=== PATIENT | female | born 1950 | race Caucasian/White ===

== ENCOUNTER 2020-11-22 11:42 | Inpatient (IN) | payer BC, MEDICARE ==
[2020-11-22] MEDS ORDERED: ACETAMINOPHEN TAB 500 MG TAB PO STA (12:37)
[2020-11-22] MEDS ORDERED: IPRATROPIUM-ALBUTEROL 3 ML NEB INHALATION STA (12:38)
--- NOTE | 2020-11-22 13:08 | XR ---
EXAMINATION TYPE: XR chest 1V portable DATE OF EXAM: 11/22/2020 Comparison: None Clinical History: 70-year-old female Suspected COVID-19 pneumonia Findings: Heart borderline enlarged. Activity mid and lower lung opacities. No sizable effusion seen. Large pat ient body habitus casts hazy densities. Impression: 1. Borderline cardiomegaly. 2. Patchy mid and lower lung airspace disease may reflect COVID pneumonia.
[2020-11-22 13:12] LABS: Basophils # (A) 0.1 k/uL (0-0.2); Basophils % (A) 1 %; Eosinophils # (A) 0.1 k/uL (0-0.7); Eosinophils % (A) 2 %; HCT 38.6 % (34.0-46.0); HGB 13.4 gm/dL (11.4-16.0); Lymphocytes # (A) 0.9 k/uL (1.0-4.8); Lymphocytes % (A) 14 %; MCH 32.6 pg (25.0-35.0); MCHC 34.8 g/dL (31.0-37.0); MCV 93.5 fL (80.0-100.0); Mean Platelet Volume 8.4; Monocytes # (A) 0.3 k/uL (0-1.0); Monocytes % (A) 4 %; Neutrophils # (A) 5.1 k/uL (1.3-7.7); Neutrophils % (A) 77 %; Platelet Count 161 k/uL (150-450); RBC 4.13 m/uL (3.80-5.40); RDW 12.3 % (11.5-15.5); WBC 6.6 k/uL (3.8-10.6)
--- NOTE | 2020-11-22 13:17 | ED ---
General Adult HPI - General Chief complaint: Shortness of Breath Stated complaint: Covid+, SOB Time Seen by Provider: 11/22/20 12:00 Source: patient, RN notes reviewed, old records reviewed Mode of arrival: ambulatory Limitations: no limitations - History of Present Illness Initial comments: This is a 70-year-old female presents emergency Department with a past medical history significant for hypertension. Patient states she has been having symptoms now of cough and shortness of breath and today is day 10. Patient states she also initially had a fever since thinks but she does not have currently. Patient denies any loss of taste or smell per patient states she does have diarrhea. Patient denies any chest pain or palpitations. Patient denies any abdominal pain. Patient denies any nausea vomiting. Patient denies headache patient denies numbness weakness. Patient denies any lightheadedness or dizziness. - Related Data Home Medications Medication Instructions Recorded Confirmed Albuterol Inhaler [Ventolin Hfa 2 puff INHALATION RT-QID PRN 11/22/20 11/22/20 Inhaler] Carvedilol [Coreg] 6.25 mg PO AC-BID 11/22/20 11/22/20 Diphenoxylate HCl/Atropine 2 tab PO QID PRN 11/22/20 11/22/20 [Lomotil 2.5-0.025 mg Tablet] Glimepiride [Amaryl] 2 mg PO BID 11/22/20 11/22/20 Losartan/Hydrochlorothiazide 1 tab PO DAILY 11/22/20 11/22/20 [Losartan-Hctz 100-25 mg Tab] Spironolactone 25 mg PO DAILY 11/22/20 11/22/20 Allergies Allergy/AdvReac Type Severity Reaction Status Date / Time Milk Containing Products AdvReac Nausea & Verified 11/22/20 15:11 [Dairy] Vomiting & Diarrhea Review of Systems ROS Statement: Those systems with pertinent positive or pertinent negative responses have been documented in the HPI. ROS Other: All systems not noted in ROS Statement are negative. Past Medical History Past Medical History: Hypertension Past Surgical History: Hysterectomy Past Psychological History: No Psychological Hx Reported Smoking Status: Never smoker Past Alcohol Use History: None Reported Past Drug Use History: None Reported General Exam - General Exam Comments Initial Comments: GENERAL: Patient is well-developed and well-nourished. Patient is nontoxic and well- hydrated and is in mild distress. Patient is to satting 90% on room air while sitting. Patient states she feels much worse with ambulation ENT: Neck is soft and supple. No significant lymphadenopathy is noted. Oropharynx is clear. Moist mucous membranes. Neck has full range of motion without eliciting any pain. EYES: The sclera were anicteric and conjunctiva were pink and moist. Extraocular movements were intact and pupils were equal round and reactive to light. Eyelids were unremarkable. PULMONARY: Patient is crackles bilateral bases. CARDIOVASCULAR: There is a regular rate and rhythm without any murmurs gallops or rubs. ABDOMEN: Soft and nontender with normal bowel sounds. SKIN: Skin is clear with no lesions or rashes and otherwise unremarkable. NEUROLOGIC: Patient is alert and oriented x3. Cranial nerves II through XII are grossly i ntact. Motor and sensory are also intact. Normal speech, volume and content. Symmetrical smile. MUSCULOSKELETAL: Normal extremities with adequate strength and full range of motion. LYMPHATICS: No significant lymphadenopathy is noted PSYCHIATRIC: Normal psychiatric evaluation. Limitations: no limitations Course Vital Signs 11/22/20 11/22/20 11/22/20 12:01 12:26 13:04 Temperature 98.7 F Pulse Rate 78 71 Respiratory 18 20 Rate Blood Pressure 135/63 O2 Sat by Pulse 90 L 96 94 L Oximetry 11/22/20 11/22/20 14:23 15:21 Temperature 98.3 F Pulse Rate 68 65 Respiratory 18 18 Rate Blood Pressure 157/40 141/67 O2 Sat by Pulse 96 95 Oximetry Medical Decision Making - Medical Decision Making EKG shows normal sinus rhythm at 71 bpm DE interval is 178 QRS with a 4 QT interval 442 QTC is 480. Patient's EKG shows no ST segment elevation or depression. Chest x-ray shows infiltrates bilaterally consistent with cold pneumonia. Patient had a computed tomography scan to rule out PE no PE was noted. Patient also showed infiltrates on the CAT scan consistent with cold pneumonia. I spoke with [facility] hospitalist and they agreed to admit the patient admitted the patient wrote admitting orders. I gave the patient Decadron. - Lab Data Result diagrams: 11/22/20 12:40 11/22/20 12:40 Lab Results 11/22/20 11/22/20 11/22/20 Range/Units 12:40 12:40 12:40 WBC 6.6 (3.8-10.6) k/uL RBC 4.13 (3.80-5.40) m/uL Hgb 13.4 (11.4-16.0) gm/dL Hct 38.6 (34.0-46.0) % MCV 93.5 (80.0-100.0) fL MCH 32.6 (25.0-35.0) pg MCHC 34.8 (31.0-37.0) g/dL RDW 12.3 (11.5-15.5) % Plt Count 161 (150-450) k/uL MPV 8.4 Neutrophils % 77 % Lymphocytes % 14 % Monocytes % 4 % Eosinophils % 2 % Basophils % 1 % Neutrophils # 5.1 (1.3-7.7) k/uL Lymphocytes # 0.9 L (1.0-4.8) k/uL Monocytes # 0.3 (0-1.0) k/uL Eosinophils # 0.1 (0-0.7) k/uL Basophils # 0.1 (0-0.2) k/uL PT 10.1 (9.0-12.0) sec INR 0.9 (<1.2) APTT 19.6 L (22.0-30.0) sec D-Dimer 1.12 H (<0.60) mg/L FEU Sodium 132 L (137-145) mmol/L Potassium 3.5 (3.5-5.1) mmol/L Chloride 96 L (98-107) mmol/L Carbon Dioxide 27 (22-30) mmol/L Anion Gap 9 mmol/L BUN 21 H (7-17) mg/dL Creatinine 0.58 (0.52-1.04) mg/dL Est GFR (CKD-EPI)AfAm >90 (>60 ml/min/1.73 sqM) Est GFR (CKD-EPI)NonAf >90 (>60 ml/min/1.73 sqM) Glucose 221 H (74-99) mg/dL Plasma Lactic Acid Alex (0.7-2.0) mmol/L Calcium 8.4 (8.4-10.2) mg/dL Magnesium 1.9 (1.6-2.3) mg/dL Total Bilirubin 1.2 (0.2-1.3) mg/dL AST 38 H (14-36) U/L ALT 26 (4-34) U/L Alkaline Phosphatase 73 (38-126) U/L Lactate Dehydrogenase 749 H (313-618) U/L C-Reactive Protein 152.1 H (<10.0) mg/L Total Protein 6.8 (6.3-8.2) g/dL Albumin 3.7 (3.5-5.0) g/dL 11/22/20 Range/Units 12:40 WBC (3.8-10.6) k/uL RBC (3.80-5.40) m/uL Hgb (11.4-16.0) gm/dL Hct (34.0-46.0) % MCV (80.0-100.0) fL MCH (25.0-35.0) pg MCHC (31.0-37.0) g/dL RDW (11.5-15.5) % Plt Count (150-450) k/uL MPV Neutrophils % % Lymphocytes % % Monocytes % % Eosinophils % % Basophils % % Neutrophils # (1.3-7.7) k/uL Lymphocytes # (1.0-4.8) k/uL Monocytes # (0-1.0) k/uL Eosinophils # (0-0.7) k/uL Basophils # (0-0.2) k/uL PT (9.0-12.0) sec INR (<1.2) APTT (22.0-30.0) sec D-Dimer (<0.60) mg/L FEU Sodium (137-145) mmol/L Potassium (3.5-5.1) mmol/L Chloride (98-107) mmol/L Carbon Dioxide (22-30) mmol/L Anion Gap mmol/L BUN (7-17) mg/dL Creatinine (0.52-1.04) mg/dL Est GFR (CKD-EPI)AfAm (>60 ml/min/1.73 sqM) Est GFR (CKD-EPI)NonAf (>60 ml/min/1.73 sqM) Glucose (74-99) mg/dL Plasma Lactic Acid Alex 1.6 (0.7-2.0) mmol/L Calcium (8.4-10.2) mg/dL Magnesium (1.6-2.3) mg/dL Total Bilirubin (0.2-1.3) mg/dL AST (14-36) U/L ALT (4-34) U/L Alkaline Phosphatase (38-126) U/L Lactate Dehydrogenase (313-618) U/L C-Reactive Protein (<10.0) mg/L Total Protein (6.3-8.2) g/dL Albumin (3.5-5.0) g/dL Critical Care Time Critical Care Time: Yes Total Critical Care Time: 35 Disposition Clinical Impression: Pneumonia due to COVID-19 virus, Breast lesion Disposition: ADMITTED IP TO THIS [facility] Time of Disposition: 15:06
[2020-11-22 13:26] LABS: ALT 26 U/L (4-34); AST 38 U/L (14-36); African American GFR (CKD) >90 (>60 ml/min/1.73 sqM); Albumin 3.7 g/dL (3.5-5.0); Alkaline Phosphatase 73 U/L (38-126); Anion Gap 9 mmol/L; Blood Urea Nitrogen 21 mg/dL (7-17); Calcium 8.4 mg/dL (8.4-10.2); Carbon Dioxide 27 mmol/L (22-30); Chloride 96 mmol/L (98-107); Glucose 221 mg/dL (74-99); LDH 749 U/L (313-618); Magnesium 1.9 mg/dL (1.6-2.3); Non-African American GFR(CKD) >90 (>60 ml/min/1.73 sqM); Potassium 3.5 mmol/L (3.5-5.1); Sodium 132 mmol/L (137-145); Total Bilirubin 1.2 mg/dL (0.2-1.3); Total Protein 6.8 g/dL (6.3-8.2)
[2020-11-22] MEDS ORDERED: ALBUTEROL HFA INHALER INHALATION ONE (13:30)
[2020-11-22 13:38] LABS: INR 0.9 (<1.2); Prothrombin Time 10.1 sec (9.0-12.0)
[2020-11-22 13:44] LABS: D-Dimer 1.12 mg/L FEU (<0.60); Partial Thromboplastin Time 19.6 sec (22.0-30.0)
[2020-11-22 13:46] LABS: C Reactive Protein 152.1 mg/L (<10.0)
--- NOTE | 2020-11-22 14:30 | CT ---
EXAMINATION TYPE: CT chest angio for PE DATE OF EXAM: 11/22/2020 COMPARISON: Chest x-ray earlier today HISTORY: Shortness of breath CT DLP: 518.6 mGycm Automated exposure control for dose reduction was used. CONTRAST: CT Chest for pulmonary embolism performed with with IV Contrast, patient injected with 100, wasted 16 mL of Isovue 370. FINDINGS: LUNGS: Multifocal areas of groundglass opacity bilaterally are present. Exam suboptimal as there is s ignificant respiratory motion artifact degradation, this limits evaluation for subcentimeter nodules. No pleural effusion or pneumothorax. MEDIASTINUM: There is suboptimal study with near equal contrast in the aorta and pulmonary arteries, heterogeneity in the periphery, no central pulmonary embolism. Dilated main pulmonary artery of 3.6 c m axial image 46, CT findings consistent with underlying pulmonary hypertension. Cannot exclude small er segmental and subsegmental PE on this exam. No thoracic aortic aneurysm or dissection. There are p rominent bilateral hilar along with prevascular, paratracheal, and subcarinal lymph nodes. Cardiomega ly. No pericardial effusion seen. Other: Moderate multilevel spurring in the spine. Suspicious 1.3 cm x 1.3 x 1.5 area in the posterio r left breast on axial image 58 and sagittal image 158 above the nipple. IMPRESSION: 1. 1. Suboptimal study without central pulmonary embolism. Cannot entirely exclude segmental and subsegm ental PE on this exam. 2. Cardiomegaly with bilateral multifocal groundglass opacities consistent with covid-19 infection. 3. Suspect suspicious left breast 1.5 cm lesion posterior depth 6:00 position, advise nonemergent dyan gnostic mammogram and ultrasound follow-up. Patient's last mammogram at this institution was 2015.
[2020-11-22] MEDS ORDERED: dexAMETHasone 2 MG TAB PO STA (15:12)
[2020-11-22] MEDS: ALBUTEROL HFA INHALER INHALATION PRN (19:29)
[2020-11-22 19:56] LABS: Ferritin 613.5 ng/mL (10.0-291.0)
[2020-11-22 20:05] LABS: Glucose,Whole Blood 366 mg/dL (75-99)
[2020-11-22] MEDS: GLIMEPIRIDE 2 MG TAB PO SCH (20:32)
[2020-11-22] MEDS: INSULIN ASPART (NovoLOG) 100 UNIT/ML VIAL SQ SCH (20:32)
[2020-11-22] MEDS ORDERED: ONDANSETRON 4 MG/2 ML VIAL IVP PRN (21:05)
[2020-11-22] MEDS ORDERED: ASCORBIC ACID 500 MG TAB PO SCH (22:15)
[2020-11-23] MEDS: ENOXAPARIN 40 MG/0.4 ML SYRINGE SQ SCH ×2 (00:02→07:23)
--- NOTE | 2020-11-23 00:07 | P.HPIM ---
History of Present Illness This is a pleasant 70 years old female with past medical history of hypertension and diabetes mellitus type 2. Presents because of dyspnea and coughing. Patient states that she wanted to [facility] for dyspnea 10 days ago , they did perez virus test for her , and today she received a phone call stating that result is positive for covid 19 infection and they asked her to come to the hospital again for oxygen treatment, but she decided to come to [facility]. Also patient has significant cough with phlegm. She may have some little chest pain from coughing. Also she has diarrhea about 4-5 times per day but no abdominal pain or nausea vomiting Patient is afebrile and she saturates 94% on 3 L oxygen via nasal cannula and 90% on room air. CBC is unremarkable. INR 0.9. D-dimer is slightly elevated at 1.1. Sodium 132, potassium 3.5, creatinine normal 0.5. Increase inflammatory markers with ferritin 6.3, lactate dehydrogenase 749 and C-reactive protein 152. Liver enzymes are not elevated as well as bilirubin CTA of chest is negative for pulmonary embolism, bilateral groundglass opacities suspicious for Covid 19 infection. Also she has 1.3 x 1.3 x 1.5 cm left breast lesion She is on Lovenox, dexamethasone, zinc and vitamin C. Pulmonary team consult from ED Review of Systems CONSTITUTIONAL: No fever, no malaise, no fatigue. HEENT: No recent visual problems or hearing problems. Denied any sore throat. CARDIOVASCULAR: No orthopnea, PND, no palpitations, no syncope. PULMONARY: No upper respiratory symptoms, no hemoptysis. GASTROINTESTINAL: No diarrhea, no nausea, no vomiting, no abdominal pain. Normoactive bowel sounds. NEUROLOGICAL: No headaches, no weakness, no numbness. HEMATOLOGICAL: Denies any bleeding or petechiae. GENITOURINARY: Denies any burning micturition, frequency, or urgency. MUSCULOSKELETAL/RHEUMATOLOGICAL: Denies any joint pain, swelling, or any muscle pain. ENDOCRINE: Denies any polyuria or polydipsia. Past Medical History Past Medical History: Hypertension History of Any Multi-Drug Resistant Organisms: None Reported Past Surgical History: Hysterectomy Past Anesthesia/Blood Transfusion Reactions: No Reported Reaction Past Psychological History: No Psychological Hx Reported Smoking Status: Never smoker Past Alcohol Use History: None Reported Past Drug Use History: None Reported Medications and Allergies Home Medications Medication Instructions Recorded Confirmed Type Albuterol Inhaler [Ventolin Hfa 2 puff INHALATION RT-QID PRN 11/22/20 11/22/20 History Inhaler] Carvedilol [Coreg] 6.25 mg PO AC-BID 11/22/20 11/22/20 History Diphenoxylate HCl/Atropine 2 tab PO QID PRN 11/22/20 11/22/20 History [Lomotil 2.5-0.025 mg Tablet] Glimepiride [Amaryl] 2 mg PO BID 11/22/20 11/22/20 History Losartan/Hydrochlorothiazide 1 tab PO DAILY 11/22/20 11/22/20 History [Losartan-Hctz 100-25 mg Tab] Spironolactone 25 mg PO DAILY 11/22/20 11/22/20 History Allergies Allergy/AdvReac Type Severity Reaction Status Date / Time Milk Containing Products AdvReac Nausea & Verified 11/22/20 15:11 [Dairy] Vomiting & Diarrhea Physical Exam Vitals: Vital Signs Temp Pulse Resp BP Pulse Ox 11/22/20 18:23 98.8 F 66 18 150/70 94 L 11/22/20 15:21 65 18 141/67 95 11/22/20 14:23 98.3 F 68 18 157/40 96 11/22/20 13:04 94 L 11/22/20 12:26 71 20 96 11/22/20 12:01 98.7 F 78 18 135/63 90 L Intake and Output 11/22/20 11/22/20 11/22/20 06:59 14:59 22:59 Other: Weight 113.852 kg 113.852 kg GENERAL: The patient is alert and oriented x3, not in any acute distress. Well developed, well nourished. HEENT: Pupils are round and equally reacting to light. EOMI. No scleral icterus. No conjunctival pallor. Normocephalic, atraumatic. No pharyngeal erythema. No thyromegaly. CARDIOVASCULAR: S1 and S2 present. No murmurs, rubs, or gallops. -PULMONARY: Chest is clear to auscultation, no bilateral scattered wheezing ABDOMEN: Soft, nontender, nondistended, normoactive bowel sounds. No palpable organomegaly. MUSCULOSKELETAL: No joint swelling or deformity. EXTREMITIES: No cyanosis, clubbing, or pedal edema. NEUROLOGICAL: Gross neurological examination did not reveal any focal deficits. SKIN: No rashes. No petechiae Results CBC & Chem 7: 11/22/20 12:40 11/22/20 12:40 Labs: Abnormal Lab Results - Last 24 Hours (Table) 11/22/20 11/22/20 11/22/20 Range/Units 12:40 12:40 12:40 Lymphocytes # 0.9 L (1.0-4.8) k/uL APTT 19.6 L (22.0-30.0) sec D-Dimer 1.12 H (<0.60) mg/L FEU Sodium 132 L (137-145) mmol/L Chloride 96 L (98-107) mmol/L BUN 21 H (7-17) mg/dL Glucose 221 H (74-99) mg/dL POC Glucose (mg/dL) (75-99) mg/dL Ferritin 613.5 H (10.0-291.0) ng/mL AST 38 H (14-36) U/L Lactate Dehydrogenase 749 H (313-618) U/L C-Reactive Protein 152.1 H (<10.0) mg/L 11/22/20 Range/Units 20:00 Lymphocytes # (1.0-4.8) k/uL APTT (22.0-30.0) sec D-Dimer (<0.60) mg/L FEU Sodium (137-145) mmol/L Chloride (98-107) mmol/L BUN (7-17) mg/dL Glucose (74-99) mg/dL POC Glucose (mg/dL) 366 H (75-99) mg/dL Ferritin (10.0-291.0) ng/mL AST (14-36) U/L Lactate Dehydrogenase (313-618) U/L C-Reactive Protein (<10.0) mg/L Thrombosis Risk Factor Assmnt - Choose All That Apply Any of the Below Risk Factors Present?: No Other Risk Factors: Yes Other congenital or acquired thrombophilia - If yes, enter type in comment: No Assessment and Plan Assessment: Acute Covid 19 pneumonitis Acute hypoxic respiratory failure secondary to above Acute Covid 19 gastroenteritis Increase inflammatory markers Left breast lesion 1.5 cm Hypertension Type 2 diabetes mellitus Plan: This is a pleasant 70 years old female who presents with Covid pneumonia. Continue with dexamethasone, vitamin C and zinc. Continue with oxygen as needed. Continue Lovenox. Pulmonary team consult. Follow-up for left breast lesion as an outpatient Continue same treatment. Continue with symptomatic treatment. Resume home medication. Monitor lytes and vitals. DVT and GI prophylaxis. Further recommendations depends on the clinical course of the patient DVT prophylaxis: Subcutaneous Lovenox GI Prophylaxis: Pepcid Prognosis is guarded
[2020-11-23] MEDS ORDERED: guaiFENesin-DM 100-10MG/5ML 10 ML CUP PO PRN (01:00)
[2020-11-23 07:03] LABS: Glucose,Whole Blood 240 mg/dL (75-99)
[2020-11-23] MEDS: ZINC SULFATE 220 MG CAP PO SCH (07:23)
[2020-11-23] MEDS: GLIMEPIRIDE 2 MG TAB PO SCH ×2 (07:23→20:31)
[2020-11-23] MEDS: dexAMETHasone 2 MG TAB PO SCH (07:24)
[2020-11-23] MEDS: ASCORBIC ACID 500 MG TAB PO SCH (07:24)
[2020-11-23] MEDS: amLODIPine 5 MG TAB PO SCH (07:24)
[2020-11-23] MEDS: carvediloL 6.25 MG TAB PO SCH ×2 (07:24→17:43)
[2020-11-23] MEDS: SPIRONOLACTONE 25 MG TAB PO SCH (07:24)
[2020-11-23] MEDS: LOSARTAN-HCTZ 50-12.5 MG 1 EACH TAB PO SCH (07:25)
[2020-11-23] MEDS: INSULIN ASPART (NovoLOG) 100 UNIT/ML VIAL SQ SCH ×4 (07:25→20:31)
[2020-11-23 07:29] LABS: Hemoglobin A1C 8.7 % (4.0-6.0)
--- NOTE | 2020-11-23 08:21 | USB ---
Reason for exam: clinical finding. History: Patient is postmenopausal and has history of endometrial cancer at age 55. Family history of breast cancer in mother at age 50, premenopausal breast cancer in sister at age 40, premenopausal breast cancer in sister at age 44, and breast cancer in sister. Took hormonal contraceptives for 3 years. US Breast LT Left complete breast ultrasound includes all four quadrants, the retroareolar region and axilla. Finding demonstrates a 1.5 x 1.3 x 1.4cm hypoechoic lesion at 1 o'clock and a 0.6 x 0.3 x 0.5cm lesion too small to characterize at 3 o'clock. Inpatient exam. Corresponds to CT 11/22/20, mammogram 01/07/16. ASSESSMENT: Suspicious, BI-RAD 4 RECOMMENDATION: Follow-up diagnostic mammogram and ultrasound core biopsy of the left breast. Patient scanned inpatient.
[2020-11-23] MEDS: ALBUTEROL HFA INHALER INHALATION PRN ×3 (08:58→21:01)
[2020-11-23 11:26] LABS: Glucose,Whole Blood 244 mg/dL (75-99)
--- NOTE | 2020-11-23 12:22 | P.PN ---
Subjective This is a pleasant 70 years old female with past medical history of hypertension and diabetes mellitus type 2. Presents because of dyspnea and coughing. Patient states that she wanted to [facility] for dyspnea 10 days ago , they did perez virus test for her , and today she received a phone call stating that result is positive for covid 19 infection and they asked her to come to the hospital again for oxygen treatment, but she decided to come to [facility]. Also patient has significant cough with phlegm. She may have some little chest pain from coughing. Also she has diarrhea about 4-5 times per day but no abdominal pain or nausea vomiting Patient is afebrile and she saturates 94% on 3 L oxygen via nasal cannula and 90% on room air. CBC is unremarkable. INR 0.9. D-dimer is slightly elevated at 1.1. Sodium 132 , potassium 3.5, creatinine normal 0.5. Increase inflammatory markers with ferritin 6.3, lactate dehydrogenase 749 and C-reactive protein 152. Liver enzymes are not elevated as well as bilirubin CTA of chest is negative for pulmonary embolism, bilateral groundglass opacities suspicious for Covid 19 infection. Also she has 1.3 x 1.3 x 1.5 cm left breast lesion She is on Lovenox, dexamethasone, zinc and vitamin C. Pulmonary team consult from ED 11/23/2020 Patient was admitted for Covid pneumonia and mild hypoxia. She still needs 2-3 L oxygen to keep her saturation at 92-94%. She is afebrile. She feels her breathing a little bit better even when she goes to the restroom she still have diarrhea about 3-4 times yesterday and was this morning. But no abdominal pain or vomiting. She is eating most of her meal Her sugar is slightly elevated around 240s. She is currently on dexamethasone, zinc and vitamin C. Pulmonary team were consulted Also patient with suspicious left breast lesion about 1.5 cm, confirmed with left breast ultrasound today. Dr. Ruffin from [employer] [facility] was consulted who referred the consult to Gen. surgery for possible biopsy . Patient is aware of this problem and management plan Review of Systems CONSTITUTIONAL: No fever, no malaise, no fatigue. HEENT: No recent visual problems or hearing problems. Denied any sore throat. CARDIOVASCULAR: No orthopnea, PND, no palpitations, no syncope. PULMONARY: No upper respiratory symptoms, no hemoptysis. GASTROINTESTINAL: No diarrhea, no nausea, no vomiting, no abdominal pain. Normoactive bowel sounds. NEUROLOGICAL: No headaches, no weakness, no numbness. Active Medications Generic Name Dose Route Start Last Admin Trade Name Freq PRN Reason Stop Dose Admin Albuterol Sulfate 2 puff 11/22/20 19:20 11/23/20 08:58 Albuterol Hfa Inhaler INHALATION 2 puff RT-QID PRN Administration Shortness Of Breath Amlodipine Besylate 5 mg 11/23/20 09:00 11/23/20 07:24 Amlodipine 5 Mg Tab PO 5 mg DAILY CRISTINA Administration Ascorbic Acid 1,000 mg 11/23/20 09:00 11/23/20 07:24 Ascorbic Acid 500 Mg Tab PO 1,000 mg DAILY CRISTINA Administration Carvedilol 6.25 mg 11/23/20 07:30 11/23/20 07:24 Carvedilol 6.25 Mg Tab PO 6.25 mg AC-BID CRISTINA Administration Dexamethasone 6 mg 11/23/20 09:00 11/23/20 07:24 Dexamethasone 2 Mg Tab PO 6 mg DAILY CRISTINA Administration Enoxaparin Sodium 40 mg 11/22/20 22:30 11/23/20 07:23 Enoxaparin 40 Mg/0.4 Ml Syringe SQ 40 mg DAILY CRISTINA Administration Glimepiride 2 mg 11/22/20 21:00 11/23/20 07:23 Glimepiride 2 Mg Tab PO 2 mg BID CRISTINA Administration Guaifenesin/Dextromethorphan 10 ml 11/23/20 01:00 Guaifenesin-Dm 100-10mg/5ml 10 Ml Cup PO Q6H PRN Cough HCTZ/Losartan Potassium 2 each 11/23/20 09:00 11/23/20 07:25 Losartan-Hctz 50-12.5 Mg 1 Each Tab PO 2 each DAILY CRISTINA Administration Insulin Aspart 0 unit 11/22/20 21:00 11/23/20 11:53 Insulin Aspart (Novolog) 100 Unit/Ml Vial SQ 5 unit ACHS CRITSINA Administration Protocol Ondansetron HCl 4 mg 11/22/20 21:05 11/22/20 21:14 Ondansetron 4 Mg/2 Ml Vial IVP 4 mg Q6HR PRN Administration Nausea And Vomiting Spironolactone 25 mg 11/23/20 09:00 11/23/20 07:24 Spironolactone 25 Mg Tab PO 25 mg DAILY CRISTINA Administration Zinc Sulfate 220 mg 11/23/20 09:00 11/23/20 07:23 Zinc Sulfate 220 Mg Cap PO 220 mg DAILY CRISTINA Administration Objective - Vital Signs Vital signs: Vital Signs Temp 98.4 F 11/23/20 10:00 Pulse 58 L 11/23/20 10:00 Resp 18 11/23/20 10:00 BP 127/66 11/23/20 10:00 Pulse Ox 92 L 11/23/20 10:00 Intake & Output 11/22/20 11/23/20 11/23/20 18:59 06:59 18:59 Weight 113.852 kg 113.852 kg Other: # Bowel Movements 2 - Labs CBC & Chem 7: 11/22/20 12:40 11/22/20 12:40 Labs: Abnormal Lab Results - Last 24 Hours (Table) 11/22/20 11/22/20 11/22/20 Range/Units 12:40 12:40 12:40 Lymphocytes # 0.9 L (1.0-4.8) k/uL APTT 19.6 L (22.0-30.0) sec D-Dimer 1.12 H (<0.60) mg/L FEU Sodium 132 L (137-145) mmol/L Chloride 96 L (98-107) mmol/L BUN 21 H (7-17) mg/dL Glucose 221 H (74-99) mg/dL POC Glucose (mg/dL) (75-99) mg/dL Hemoglobin A1c (4.0-6.0) % Ferritin 613.5 H (10.0-291.0) ng/mL AST 38 H (14-36) U/L Lactate Dehydrogenase 749 H (313-618) U/L C-Reactive Protein 152.1 H (<10.0) mg/L Procalcitonin (0.02-0.09) ng/mL 11/22/20 11/22/20 11/22/20 Range/Units 12:40 19:11 20:00 Lymphocytes # (1.0-4.8) k/uL APTT (22.0-30.0) sec D-Dimer (<0.60) mg/L FEU Sodium (137-145) mmol/L Chloride (98-107) mmol/L BUN (7-17) mg/dL Glucose (74-99) mg/dL POC Glucose (mg/dL) 366 H (75-99) mg/dL Hemoglobin A1c 8.7 H (4.0-6.0) % Ferritin (10.0-291.0) ng/mL AST (14-36) U/L Lactate Dehydrogenase (313-618) U/L C-Reactive Protein (<10.0) mg/L Procalcitonin 0.14 H (0.02-0.09) ng/mL 11/23/20 11/23/20 Range/Units 07:02 11:25 Lymphocytes # (1.0-4.8) k/uL APTT (22.0-30.0) sec D-Dimer (<0.60) mg/L FEU Sodium (137-145) mmol/L Chloride (98-107) mmol/L BUN (7-17) mg/dL Glucose (74-99) mg/dL POC Glucose (mg/dL) 240 H 244 H (75-99) mg/dL Hemoglobin A1c (4.0-6.0) % Ferritin (10.0-291.0) ng/mL AST (14-36) U/L Lactate Dehydrogenase (313-618) U/L C-Reactive Protein (<10.0) mg/L Procalcitonin (0.02-0.09) ng/mL Assessment and Plan Assessment: Acute Covid 19 pneumonitis Acute hypoxic respiratory failure secondary to above Acute Covid 19 gastroenteritis Increase inflammatory markers Left breast lesion 1.5 cm Hypertension Type 2 diabetes mellitus Plan: This is a pleasant 70 years old female who presents with Covid pneumonia. Continue with dexamethasone, vitamin C and zinc. Continue with oxygen as needed. Continue Lovenox. Pulmonary team consult. Follow-up for left breast lesion , lesion is suspicious per CAT scan and ultrasound. Gen. surgery team were consulted Continue with same treatment. Continue with symptomatic treatment. Resume home medication. Monitor lytes and vitals. DVT and GI prophylaxis. Further recommendations depends on the clinical course of the patient DVT prophylaxis: Subcutaneous Lovenox GI Prophylaxis: Pepcid Prognosis is guarded
--- NOTE | 2020-11-23 14:05 | P.CNPUL ---
History of Present Illness Consult date: 11/23/20 Requesting physician: Tang E Sheet Reason for consult: dyspnea, cough, hypoxemia, pneumonia, abnormal CXR/CT Chief complaint: Shortness of breath. History of present illness: This is a 70-year-old female, that I'm asked to see because of COVID 19 pneumonia. The patient started having symptoms 10 or 11 days ago. The patient apparently went to some clinic in [place], but was discharged home. It is not clear to me that she was tested at that time. Her symptoms include muscle aches, joint is, cough, shortness of breath, pain in the chest, and diarrhea. Unfortunately, because her symptoms have been present for just a long time, she is really not a candidate for REM, TOCI or CP. She was seen in the emergency room and started on Decadron. The patient should also be on vitamin C, vitamin D3, and zinc. Finally, she should have an albuterol inhaler. Her chest x-ray and CAT scan are consistent with COVID 19 pneumonia. She tells me today, that she feeling a bit better than she was yesterday. Her primary care provider is Dr. Aneesh Davis. Her home medications include albuterol inhaler, Coreg, Lomotil, glimepiride, losartan/hydrochlorothiazide, and Aldactone. She is a lifelong nonsmoker. She doesn't drink or use any illicit drugs. Currently, she is on a couple liters of oxygen. White count is 6.6, hemoglobin 13.4, hematocrit 38.6, and platelet count 161,000. PT INR were normal. D-dimer was 1.12. Sodium 132, potassium 3.5, chlorides 96, CO2 27, anion gap 9, BUN 21, and creatinine 0.58. C-reactive protein was 152.1, LDH 749, ferritin 614, and pro- calcitonin level was 0.14 Review of Systems REVIEW OF SYSTEMS: CONSTITUTIONAL: Fatigue and weakness. NEUROLOGIC: [ Negative.] HEENT: [ Negative.] CARDIAC: [Negative.] PULMONARY: Shortness of breath and cough. GI: Diarrhea. : [Negative.] RHEUMATOLOGIC: [ Negative.] IMMUNOLOGIC: [ Negative.] ENDOCRINE: [Negative. ] DERMATOLOGIC: [Negative.] Past Medical History Past Medical History: Hypertension History of Any Multi-Drug Resistant Organisms: None Reported Past Surgical History: Hysterectomy Past Anesthesia/Blood Transfusion Reactions: No Reported Reaction Past Psychological History: No Psychological Hx Reported Smoking Status: Never smoker Past Alcohol Use History: None Reported Past Drug Use History: None Reported - Past Family History Mother History Unknown: Yes Medications and Allergies Home Medications Medication Instructions Recorded Confirmed Type Albuterol Inhaler [Ventolin Hfa 2 puff INHALATION RT-QID PRN 11/22/20 11/22/20 History Inhaler] Carvedilol [Coreg] 6.25 mg PO AC-BID 11/22/20 11/22/20 History Diphenoxylate HCl/Atropine 2 tab PO QID PRN 11/22/20 11/22/20 History [Lomotil 2.5-0.025 mg Tablet] Glimepiride [Amaryl] 2 mg PO BID 11/22/20 11/22/20 History Losartan/Hydrochlorothiazide 1 tab PO DAILY 11/22/20 11/22/20 History [Losartan-Hctz 100-25 mg Tab] Spironolactone 25 mg PO DAILY 11/22/20 11/22/20 History Allergies Allergy/AdvReac Type Severity Reaction Status Date / Time Milk Containing Products AdvReac Nausea & Verified 11/22/20 15:11 [Dairy] Vomiting & Diarrhea Physical Exam Osteopathic Statement: *. No significant issues noted on an osteopathic structural exam other than those noted in the History and Physical/Consult. Vitals: Vital Signs Temp Pulse Pulse Resp BP BP Pulse Ox 11/23/20 10:00 98.4 F 58 L 18 127/66 92 L 11/23/20 05:32 97.5 F L 58 L 163/63 94 L 11/23/20 02:32 97.4 F L 56 L 178/72 92 L 11/22/20 21:47 97.8 F 66 173/61 92 L 11/22/20 18:23 98.8 F 66 18 150/70 94 L 11/22/20 15:21 65 18 141/67 95 11/22/20 14:23 98.3 F 68 18 157/40 96 Intake and Output 11/22/20 11/23/20 11/23/20 22:59 06:59 14:59 Other: # Bowel Movements 2 Weight 113.852 kg No acute distress, oriented 3. Currently, the patient's on 2 L nasal cannula. HEENT examination is grossly unremarkable. Mucous membranes are moist. No oral lesions. Neck supple. Full range of motion. No adenopathy thyromegaly or neck vein distention. Cardiovascular examination reveals regular rhythm rate. S1-S2 normal. No S3 or S4. No discernible murmur noted.HR is 58 bpm. Lungs reveal coarse bilateral rhonchi. There are a few scattered crackles. Breath sounds equal bilaterally. She coughs when she takes a deep breath. Abdomen soft bowel sounds are heard. No masses or tenderness. Extremities are intact. No cyanosis clubbing or edema. Skin is without rash or lesion. Neurologic examination is brief but nonfocal. Results - Laboratory Findings CBC and BMP: 11/22/20 12:40 11/22/20 12:40 PT/INR, D-dimer PT 10.1 sec (9.0-12.0) 11/22/20 12:40 INR 0.9 (<1.2) 11/22/20 12:40 D-Dimer 1.12 mg/L FEU (<0.60) H 11/22/20 12:40 Abnormal lab findings: Abnormal Labs 11/22/20 11/22/20 11/22/20 12:40 12:40 12:40 Lymphocytes # 0.9 L APTT 19.6 L D-Dimer 1.12 H Sodium 132 L Chloride 96 L BUN 21 H Glucose 221 H POC Glucose (mg/dL) Hemoglobin A1c Ferritin 613.5 H AST 38 H Lactate Dehydrogenase 749 H C-Reactive Protein 152.1 H Procalcitonin 11/22/20 11/22/20 11/22/20 12:40 19:11 20:00 Lymphocytes # APTT D-Dimer Sodium Chloride BUN Glucose POC Glucose (mg/dL) 366 H Hemoglobin A1c 8.7 H Ferritin AST Lactate Dehydrogenase C-Reactive Protein Procalcitonin 0.14 H 11/23/20 11/23/20 07:02 11:25 Lymphocytes # APTT D-Dimer Sodium Chloride BUN Glucose POC Glucose (mg/dL) 240 H 244 H Hemoglobin A1c Ferritin AST Lactate Dehydrogenase C-Reactive Protein Procalcitonin - Diagnostic Findings Chest x-ray: image reviewed CT scan - chest: image reviewed Assessment and Plan Assessment: Acute hypoxemic respiratory failure secondary to COVID 19 pneumonia. History of hypertension. Plan: Plan dated 11/23/2020. Unfortunately, the patient's symptoms have been present for about 11 days now. She's not a candidate for REM, TOCI, or convalescent plasma. The patient is given vitamin C, vitamin D3, and zinc. The patient is also given an albuterol inhaler. Can be used 2 puffs as needed. Finally, the patient gets Decadron, 6 mg a day for a total of 10 days. Also, she should get Lovenox at usual doses. We will continue to follow her, and make recommendations were appropriate. Prognosis is guarded. No additional recommendations are made at this time. Time with Patient: Greater than 30
--- NOTE | 2020-11-23 14:52 | P.GSCN ---
History of Present Illness Consult date: 11/23/20 History of present illness: CHIEF COMPLAINT: Shortness of breath HISTORY OF PRESENT ILLNESS: This is a 70-year-old female with a known history of hypertension. Patient presented to the emergency room with cough and shortness of breath for the last 10 days. And she initially had a fever when symptoms began. She had a CTA of the chest that had showed suboptimal study without central pulmonary embolism. cardiomegaly with bilateral multifocal groundglass opacities consistent with Covid 19 infection and suspect a suspicious left breast 1.5 cm lesion posterior at 6 o'clock position. Advise nonemergent diagnostic mammogram and ultrasound follow-up. Patient's last mammogram at this institution was in 2015. Patient then had a left breast ultrasound demonstrates a 1.5 x 1.3 x 1.4 cm hypoechoic lesion at 1 o'clock position 0.6 x 0.3 x 0.5 cm lesion too small to characterize at 3 o'clock position. Surgical service was consulted in regards to the breast lesion. Patient has been admitted to the hospital for a Covid 19 infection and respiratory failure. She's followed by pulmonary service. Patient seen and examined with Dr. Lee PAST MEDICAL HISTORY: See list. PAST SURGICAL HISTORY: See list. MEDICATIONS: See list. ALLERGIES: See list. SOCIAL HISTORY: No illicit drug use. REVIEW OF SYSTEMS: CONSTITUTIONAL: Denies fever or chills. HEENT: Denies blurred vision, vision changes, or eye pain. Denies hemoptysis CARDIOVASCULAR: Denies chest pain or pressure. RESPIRATORY: No shortness of breath. GASTROINTESTINAL: See HPI for pertinent findings HEMATOLOGIC: Denies bleeding disorders. GENITOURINARY: Denies any blood in urine or increased urinary frequency. SKIN: Denies pruitis. Denies rash. PHYSICAL EXAM: VITAL SIGNS: Reviewed GENERAL: Well-developed in no acute distress. HEENT: No sclera icterus. Extraocular movements grossly intact. Moist buccal mucosa. Head is atraumatic, normocephalic. No nasal drainage. ABDOMEN: Soft. Nondistended. nontender NEUROLOGIC: Alert and oriented. Cranial nerves II through XII grossly intact. LABORATORY DATA: WBC 6.6 HGB 13.4 A1c 8.7 IMAGING: Left Breast ultrasound demonstrates a 1.5 x 1.3 x 1.4 cm hypoechoic lesion at 1 o'clock position 0.6 x 0.3 x 0.5 cm lesion too small to characterize at 3 o'clock position. CTA of the chest that had showed suboptimal study without central pulmonary embolism. cardiomegaly with bilateral multifocal groundglass opacities consistent with Covid 19 infection and suspect a suspicious left breast 1.5 cm lesion posterior at 6 o'clock position. Advise nonemergent diagnostic mammogram and ultrasound follow-up ASSESSMENT: 1. Two left breast lesions at 1 o'clock and 3 o'clock positions PLAN: -Dr. Claros will plan for outpatient biopsy of left breast lesions when patient is more medically stable. Thank you for this consultation. Physician Color Specialist note has been reviewed by physician. Signing provider agrees with the documented findings, assessment, and plan of care. Past Medical History Past Medical History: Hypertension History of Any Multi-Drug Resistant Organisms: None Reported Past Surgical History: Hysterectomy Past Anesthesia/Blood Transfusion Reactions: No Reported Reaction Past Psychological History: No Psychological Hx Reported Smoking Status: Never smoker Past Alcohol Use History: None Reported Past Drug Use History: None Reported - Past Family History Mother History Unknown: Yes Medications and Allergies Home Medications Medication Instructions Recorded Confirmed Type Albuterol Inhaler [Ventolin Hfa 2 puff INHALATION RT-QID PRN 11/22/20 11/22/20 History Inhaler] Carvedilol [Coreg] 6.25 mg PO AC-BID 11/22/20 11/22/20 History Diphenoxylate HCl/Atropine 2 tab PO QID PRN 11/22/20 11/22/20 History [Lomotil 2.5-0.025 mg Tablet] Glimepiride [Amaryl] 2 mg PO BID 11/22/20 11/22/20 History Losartan/Hydrochlorothiazide 1 tab PO DAILY 11/22/20 11/22/20 History [Losartan-Hctz 100-25 mg Tab] Spironolactone 25 mg PO DAILY 11/22/20 11/22/20 History Allergies Allergy/AdvReac Type Severity Reaction Status Date / Time Milk Containing Products AdvReac Nausea & Verified 11/22/20 15:11 [Dairy] Vomiting & Diarrhea Surgical - Exam Vital Signs Temp Pulse Resp BP Pulse Ox 98.7 F 78 18 135/63 90 L 11/22/20 12:01 11/22/20 12:01 11/22/20 12:01 11/22/20 12:01 11/22/20 12:01 Results - Labs 11/22/20 12:40 11/22/20 12:40 Abnormal Lab Results - Last 24 Hours (Table) 11/22/20 11/22/20 11/22/20 Range/Units 12:40 12:40 19:11 POC Glucose (mg/dL) (75-99) mg/dL Hemoglobin A1c 8.7 H (4.0-6.0) % Ferritin 613.5 H (10.0-291.0) ng/mL Procalcitonin 0.14 H (0.02-0.09) ng/mL 11/22/20 11/23/20 11/23/20 Range/Units 20:00 07:02 11:25 POC Glucose (mg/dL) 366 H 240 H 244 H (75-99) mg/dL Hemoglobin A1c (4.0-6.0) % Ferritin (10.0-291.0) ng/mL Procalcitonin (0.02-0.09) ng/mL Diabetes panel 11/22/20 Range/Units 12:40 Hemoglobin A1c 8.7 H (4.0-6.0) %
[2020-11-23 16:40] LABS: Glucose,Whole Blood 292 mg/dL (75-99)
[2020-11-23 20:22] LABS: Glucose,Whole Blood 306 mg/dL (75-99)
[2020-11-23] MEDS: APIXABAN 2.5 MG TABLET PO SCH (20:31)
[2020-11-23 22:41] LABS: Glucose,Whole Blood 171 mg/dL (75-99)
[2020-11-23 23:06] LABS: Basophils # (A) 0.2 k/uL (0-0.2); Basophils % (A) 1 %; Eosinophils # (A) 0.3 k/uL (0-0.7); Eosinophils % (A) 2 %; HGB 14.3 gm/dL (11.4-16.0); Lymphocytes # (A) 0.9 k/uL (1.0-4.8); Lymphocytes % (A) 8 %; MCH 31.8 pg (25.0-35.0); MCHC 33.3 g/dL (31.0-37.0); MCV 95.5 fL (80.0-100.0); Mean Platelet Volume 8.7; Monocytes # (A) 0.5 k/uL (0-1.0); Monocytes % (A) 5 %; Neutrophils # (A) 8.8 k/uL (1.3-7.7); Neutrophils % (A) 79 %; Platelet Count 289 k/uL (150-450); RDW 12.3 % (11.5-15.5); WBC 11.1 k/uL (3.8-10.6)
[2020-11-23 23:21] LABS: INR 0.9 (<1.2); Partial Thromboplastin Time 23.1 sec (22.0-30.0); Prothrombin Time 10.2 sec (9.0-12.0)
--- NOTE | 2020-11-23 23:21 | CT ---
EXAMINATION TYPE: CT brain wo con for TPA DATE OF EXAM: 11/23/2020 COMPARISON: None HISTORY: Altered mental status. CT DLP: mGycm Automated exposure control for dose reduction was used. There is mild cerebral cortical atrophy. There is no mass effect nor midline shift. There is no sign of intracranial hemorrhage. Calvarium is intact. Skull base is intact. IMPRESSION: Mild atrophy. No acute intracranial abnormality.
[2020-11-23] MEDS ORDERED: ATORVASTATIN 80 MG TAB PO STA (23:32)
--- NOTE | 2020-11-23 23:33 | CT ---
EXAMINATION TYPE: CT angio head neck DATE OF EXAM: 11/23/2020 COMPARISON: None HISTORY: AMS CT DLP: 782.2 mGycm Automated exposure control for dose reduction was used. CONTRAST: Performed with IV Contrast, patient injected with 65 mL of Isovue 370. There are 3-D post processed images. There is normal branching pattern of the great vessels on the aortic arch. There are numerous mediast inal and peritracheal lymph nodes that measure up to 1.5 cm. There is no sign of aneurysm or dissecti on at the aortic arch. There is arterial flow in both subclavian arteries. There is arterial flow in the common internal and external carotid arteries bilaterally. There is min imal calcification at the right carotid artery bifurcation. There is small calcification medial wall of the proximal right internal carotid artery. There is no evidence of any significant stenosis. Lume n narrowing is less than 10%. There is arterial flow in both vertebral arteries. There is no evidence of vertebral or carotid artery aneurysm or dissection. There is arterial flow in the vertebrobasilar artery system. There is arterial flow in the anterior middle and posterior cerebral arteries. There is normal contra st opacification of the venous sinuses. There is multilevel cervical spondylotic changes with disc space narrowing from C4 to T1. There is no evidence of intracranial aneurysm or neovascularity. There is no evidence of intracranial arterial stenosis. There is no mass effect. IMPRESSION: Negative CT angiogram of the neck. Negative CT angiogram of the brain. Mild mediastinal lymphadenopathy.
[2020-11-23 23:37] LABS: AST 34 U/L (14-36); African American GFR (CKD) 53 (>60 ml/min/1.73 sqM); Albumin 4.1 g/dL (3.5-5.0); Albumin/Globulin Ratio 1.3; Alkaline Phosphatase 70 U/L (38-126); Anion Gap 13 mmol/L; Blood Urea Nitrogen 35 mg/dL (7-17); Calcium 9.5 mg/dL (8.4-10.2); Carbon Dioxide 29 mmol/L (22-30); Chloride 97 mmol/L (98-107); Globulin 3.2 g/dL; Glucose 159 mg/dL (74-99); Non-African American GFR(CKD) 46 (>60 ml/min/1.73 sqM); Potassium 3.7 mmol/L (3.5-5.1); Sodium 139 mmol/L (137-145); Total Bilirubin 0.8 mg/dL (0.2-1.3); Total Protein 7.3 g/dL (6.3-8.2)
[2020-11-23 23:44] LABS: ALT 38 U/L (4-34)
[2020-11-23] MEDS: SODIUM CHLORIDE 0.9% 1,000 ML IV SCH (23:58)
[2020-11-24 07:09] LABS: Glucose,Whole Blood 167 mg/dL (75-99)
[2020-11-24] MEDS: dexAMETHasone 2 MG TAB PO SCH (07:48)
[2020-11-24] MEDS: ZINC SULFATE 220 MG CAP PO SCH (07:48)
[2020-11-24] MEDS: SPIRONOLACTONE 25 MG TAB PO SCH (07:49)
[2020-11-24] MEDS: APIXABAN 2.5 MG TABLET PO SCH (07:49)
[2020-11-24] MEDS: GLIMEPIRIDE 2 MG TAB PO SCH ×2 (07:49→20:54)
[2020-11-24] MEDS: LOSARTAN-HCTZ 50-12.5 MG 1 EACH TAB PO SCH (07:49)
[2020-11-24] MEDS: amLODIPine 5 MG TAB PO SCH (07:49)
[2020-11-24] MEDS: carvediloL 6.25 MG TAB PO SCH ×2 (07:49→17:21)
[2020-11-24] MEDS: ASCORBIC ACID 500 MG TAB PO SCH (07:49)
[2020-11-24] MEDS: INSULIN ASPART (NovoLOG) 100 UNIT/ML VIAL SQ SCH ×4 (07:50→20:54)
--- NOTE | 2020-11-24 08:35 | XR ---
EXAMINATION TYPE: XR chest 1V DATE OF EXAM: 11/24/2020 COMPARISON: 11/22/2020 HISTORY: Cough TECHNIQUE: Single frontal view of the chest is obtained. FINDINGS: A patchy bilateral infiltrates and cardiomegaly stable. No pneumothorax. No sizable pleura l effusion. Arthropathy of the shoulders. IMPRESSION: Stable patchy bilateral infiltrate.
[2020-11-24 09:07] LABS: HCT 36.8 % (37.2-46.3); HGB 12.3 g/dL (12.0-15.0); MCH 31.7 pg (27.0-32.0); MCHC 33.4 g/dL (32.0-37.0); MCV 94.8 fL (80.0-97.0); Mean Platelet Volume 11.8 fL (9.5-12.2); Platelet Count 293 X 10*3/uL (140-440); RBC 3.88 X 10*6/uL (4.10-5.20); RDW 12.4 % (11.5-14.5); WBC 10.07 X 10*3/uL (4.50-10.00)
[2020-11-24 09:29] LABS: C Reactive Protein 4.5 mg/dL (0.0-0.8)
--- NOTE | 2020-11-24 09:31 | P.CNNES ---
History of Present Illness Consult date: 11/24/20 Requesting physician: Tang E Sheet Reason for Consult: possible stroke History of Present Illness: This is a 70-year-old woman with medical history of hypertension, diabetes mellitus who presented to the emergency department on 11/22/2020 since the patient was having coughing and dyspnea. She received an recent COVID test at outside facility and was told was positive so she decided to come to the emergency department for further management. Neurology is consulted for stroke- like symptoms. Patient stated that the she took a nap around 7:00 PM on 11/23/2020 and then she woke up around 732 8:00 and noticed that she's having left hand and arm weakness as well as numbnessareas. Therefore a stroke code was activated. She had an NIH of a 5 initially in which she received 4 for left upper extremity and 1 for sensation then later was reassessed and he receives NIH of a 4. 4 for the left arm and 1 for the sensation. atient had a CT of the head on 11/23/2020 and it was very late at night because of strokelike symptoms. Was reported as mild atrophy. No acute intracranial abnormality. The stroke team was contacted and they stated the patient is not a TPA candidate. The patient is on Eliquis. Then I think the patient the reason why she didn't get TPA since is the patient is on Eliquis. Patient denies off any stroke symptoms prior to this or TIAs as she stated that the throughout the day yesterday she didn't have any weakness or numbness but noticed that the during suppertime as mentioned above. Currently she stated that she continues to have weakness of the left upper extremity but denies any further numbness. She denies any difficulty getting her words out, visual disturbance, difficulty swallowing, any weakness in the left leg. She denies being on aspirin or statin or antiplatelets at home. The reason why she is on Eliquis in the hospital as a since she is ALLERGIC to heparin and cannot get Lovenox for DVT prophylaxis and getting Eliquis for DVT prophylaxis. During the hospital stay the patient was being treated for her Covid 19 pneumonitis. And the on 11/23/2020 very late at night she reported to the nursing staff also numbness and weakness. As a result of stroke code was ac tivated. Patient had a CT of the head on 11/23/2020 and it was very late at night because of strokelike symptoms. Was reported as mild atrophy. No acute intracranial abnormality. The stroke team was contacted and they stated the patient is not a TPA candidate. The patient is on Eliquis. The night nurse contacted me yesterday and she notified me that NIH was a 4. And she notified me that the stroke team the decided for the patient to receive TPA. I notified the nurse yesterday to give the patient Lipitor one time [address] angiography of the head and neck was reported as negative for both. It shows mild mediastinal lymphadenopathy. Per the primary team's note is seems that the patient also has a acute Covid 19 gastroenteritis and the left breast lesion about 1.5 cm and general surgery team is consulted. Her vitals: Patient blood pressure has been in the range of 100 to 130's systoli c recently, diastolic as 60s to 70s, respiratory rate 50s to 60s, temperature was recorded last is 97.3 Fahrenheit oral, respiratory of 18, pulse ox of 97%. Her most recent blood cell is 11.1. Her POC glucose has been in the range of 160s to 300 Her most recent coagulation study is PT of 10.2, INR is 0.9, PTT of 23.1. The d-dimer is 0.92. Review of Systems Review of system: The 12 point system was reviewed and apparent positive and negative per HPI. Past Medical History Past Medical History: Hypertension History of Any Multi-Drug Resistant Organisms: None Reported Past Surgical History: Hysterectomy Past Anesthesia/Blood Transfusion Reactions: No Reported Reaction Past Psychological History: No Psychological Hx Reported Smoking Status: Never smoker Past Alcohol Use History: None Reported Past Drug Use History: None Reported - Past Family History Mother History Unknown: Yes Medications and Allergies Home Medications Medication Instructions Recorded Confirmed Type Albuterol Inhaler [Ventolin Hfa 2 puff INHALATION RT-QID PRN 11/22/20 11/22/20 History Inhaler] Carvedilol [Coreg] 6.25 mg PO AC-BID 11/22/20 11/22/20 History Diphenoxylate HCl/Atropine 2 tab PO QID PRN 11/22/20 11/22/20 History [Lomotil 2.5-0.025 mg Tablet] Glimepiride [Amaryl] 2 mg PO BID 11/22/20 11/22/20 History Losartan/Hydrochlorothiazide 1 tab PO DAILY 11/22/20 11/22/20 History [Losartan-Hctz 100-25 mg Tab] Spironolactone 25 mg PO DAILY 11/22/20 11/22/20 History Allergies Allergy/AdvReac Type Severity Reaction Status Date / Time Milk Containing Products AdvReac Nausea & Verified 11/22/20 15:11 [Dairy] Vomiting & Diarrhea Pork/Porcine Containing AdvReac Diarrhea Verified 11/23/20 17:46 Products Physical Examination - Vital Signs Vital Signs: Vital Signs Temp Pulse Pulse Resp BP BP Pulse Ox 11/24/20 06:22 97.3 F L 59 L 18 105/63 97 11/24/20 04:33 97.2 F L 55 L 16 108/44 96 11/24/20 02:56 57 L 16 110/44 96 11/24/20 01:33 97.3 F L 58 L 16 115/79 95 11/24/20 01:30 97.3 F L 58 L 16 115/79 95 11/24/20 00:35 97.3 F L 51 L 18 129/72 96 11/23/20 23:34 97.6 F 64 16 139/74 95 11/23/20 22:14 97.5 F L 60 108/61 93 L 11/23/20 18:00 97.4 F L 58 L 18 117/59 95 11/23/20 14:41 97.5 F L 60 18 111/61 94 L 11/23/20 10:00 98.4 F 58 L 18 127/66 92 L Intake and Output 11/23/20 11/24/20 11/24/20 22:59 06:59 14:59 Intake Total 480 100 Balance 480 100 Intake: Oral 480 100 Other: # Voids 3 GENERAL: The patient is lying in bed and is not in acute distress. CHEST: The heart rate is regular rate rhythm. No murmurs to auscultation. No carotid bruit bilaterally. LUNG: Clear to auscultation bilaterally no wheezing noted throughout. Not labored breathing. ABDOMEN/GI: Bowel sounds present in all 4 quadrants. No tenderness to palpation throughout. NEUROLOGICAL: Higher mental function: The patient is awake, alert, oriented to self, place and time. Patient is following commands. No aphasia and no neglect. Cranial nerves: The pupils are round, equal and reactive to light and accommodation. Visual moncada are full to confrontation throughout. Extraocular movement is intact no nystagmus is noted. Facial sensation is normal to touch throughout. The facial strength is normal throughout. Hearing is normal bilaterally to hand rub. Tongue is midline and moved [id number] without any difficulty. No dysarthria is noted. Shoulder shrug is normal bilaterally. Motor: The strength is left upper extremity proximally is 4/5 while hand is 2/5 and at times has weak hand mold mechanic. Left knee extension is 4+ to 5- otherwise 5/5. 5 over 5 of the right upper and lower extremity. Normal tone and bulk. Cerebellum: Normal finger to nose over the right but could not assess left because of weakness. Sensation: Sensation is normal to touch throughout. Reflexes (right/left): 2+ throughout. Plantars are downgoing bilaterally. NIH Stroke Scale Score: Level of consciousness 0 LOC questions 0 LOC commands 0 Best gaze 0 Visual moncada 0 Facial palsy 0 Left motor arm 1 Right motor arm 0 Left motor leg 0 Right motor leg 0 Limb ataxia 0 (unable to assess left) Sensory 0 Best language 0 Dysarthria 0 Extinction and inattention 0 Total NIHSS score: 1 Results - Laboratory Findings CBC and BMP: 11/24/20 06:30 11/23/20 22:51 Abnormal Lab Findings: Abnormal Labs 11/22/20 11/22/20 11/22/20 12:40 12:40 12:40 WBC Neutrophils # Lymphocytes # 0.9 L APTT 19.6 L D-Dimer 1.12 H Sodium 132 L Chloride 96 L BUN 21 H Creatinine Glucose 221 H POC Glucose (mg/dL) Hemoglobin A1c Ferritin 613.5 H AST 38 H ALT Lactate Dehydrogenase 749 H C-Reactive Protein 152.1 H Procalcitonin 11/22/20 11/22/20 11/22/20 12:40 19:11 20:00 WBC Neutrophils # Lymphocytes # APTT D-Dimer Sodium Chloride BUN Creatinine Glucose POC Glucose (mg/dL) 366 H Hemoglobin A1c 8.7 H Ferritin AST ALT Lactate Dehydrogenase C-Reactive Protein Procalcitonin 0.14 H 11/23/20 11/23/20 11/23/20 07:02 11:25 16:39 WBC Neutrophils # Lymphocytes # APTT D-Dimer Sodium Chloride BUN Creatinine Glucose POC Glucose (mg/dL) 240 H 244 H 292 H Hemoglobin A1c Ferritin AST ALT Lactate Dehydrogenase C-Reactive Protein Procalcitonin 11/23/20 11/23/20 11/23/20 20:21 22:38 22:51 WBC 11.1 H Neutrophils # 8.8 H Lymphocytes # 0.9 L APTT D-Dimer Sodium Chloride BUN Creatinine Glucose POC Glucose (mg/dL) 306 H 171 H Hemoglobin A1c Ferritin AST ALT Lactate Dehydrogenase C-Reactive Protein Procalcitonin 11/23/20 11/24/20 11/24/20 22:51 06:30 07:08 WBC Neutrophils # Lymphocytes # APTT D-Dimer 0.92 H Sodium Chloride 97 L BUN 35 H Creatinine 1.22 H Glucose 159 H POC Glucose (mg/dL) 167 H Hemoglobin A1c Ferritin AST ALT 38 H Lactate Dehydrogenase C-Reactive Protein Procalcitonin Assessment and Plan Assessment: This is a 70-year-old woman with multiple medical problems who presented to the emergency department on 11/22/2020 for coughing and dyspnea. She was found to have the Covid 19 positive pneumonia. On the 11/23/2020 patient noticed the left upper extremity weakness and numbness and she had NIH of 5. She did not receive TPA since she is on Eliquis. Left upper extremity weakness predominantly in the left hand and that transient sensory loss in the left upper extremity is likely due to acute ischemic stroke. Unknown source of stroke. Possibly small vessel disease (because of her risk factors of DM, HTN, age) vs COVID 19 (since there are increase risk with stroke from COVID 19). Acute hypoxemic respiratory failure secondary due to Covid 19 pneumonia Acute Covid 19 gastroenteritis Uncontrolled sugar with history of diabetes mellitus Left breast lesion about 1.5 cm Hypertension Plan: CT of the head on 11/23/2020 and reported as mild atrophy. No acute intracranial abnormality. CT angiography of the head and neck was reported as negative for both. It shows mild mediastinal lymphadenopathy. Patient is on Eliquis for DVT prophylaxis. I spoke with the primary team and will stop the Eliquis and instead placed her on aspirin 81 mg, Plavix 75 mg a daily and she is to be on it for 21 days then after that to discontinue Plavix 75 and to indefinitely be on aspirin 81 mg daily. I start the patient on Lipitor 40 mg for secondary stroke prophylaxis. I will order MRI of the brain. I ordered lipid panel as well 2-D echo. PT and OT are consulted. Continue every 4 neuro checks Continue cardiac monitoring Recommend tighter control of glucose but will defer the management to the primary team. Non Ferrous Material Handler on board for the patient covert 19 and pneumonia. Upon discharge the patient is to follow up with a neurologist as outpatient within 1-2 weeks. We'll defer the rest of the medical management to the primary team. Regarding the DVT prophylaxis I notified that the primary team that I would recommend SCDs. Plan was discussed with the patient, patient's primary team and her nurse. Thank you for the consultation. Florentin Cole M.D. Neuro-hospitalist Time with Patient: Greater than 30
[2020-11-24] MEDS: ALBUTEROL HFA INHALER INHALATION PRN ×3 (09:41→17:20)
[2020-11-24] MEDS: CLOPIDOGREL 75 MG TAB PO SCH (10:08)
[2020-11-24] MEDS: ASPIRIN 81 MG PO SCH (10:08)
[2020-11-24 11:34] LABS: Basophils # (A) 0.02 X 10*3/uL (0.00-0.10); Basophils % (A) 0.2 %; Eosinophils # (A) 0 X 10*3/uL (0.04-0.35); Eosinophils % (A) 0 %; Lymphocytes # (A) 1.52 X 10*3/uL (0.90-5.00); Lymphocytes % (A) 15.1 %; Monocytes # (A) 0.68 X 10*3/uL (0.20-1.00); Monocytes % (A) 6.8 %; Neutrophils # (A) 7.78 X 10*3/uL (1.80-7.70); Neutrophils % (A) 77.2 %
[2020-11-24 11:35] LABS: Chol/HDL Ratio 4.81; LDL Cholesterol,Calculated 89.6 mg/dL (0.0-131.0); VLDL Calculation 32.4 mg/dL (5.00-40.00)
[2020-11-24 11:50] LABS: Glucose,Whole Blood 198 mg/dL (75-99)
--- NOTE | 2020-11-24 12:19 | ECHOF ---
Referral Reason:stroke MEASUREMENTS -------- HEIGHT: 170.2 cm WEIGHT: 113.9 kg BP: 105/63 RVIDd: 3.2 cm (< 3.3) IVSd: 1.2 cm (0.6 - 1.1) LVIDd: 5.3 cm (3.9 - 5.3) LVPWd: 1.1 cm (0.6 - 1.1) IVSs: 1.7 cm LVIDs: 3.2 cm LVPWs: 1.9 cm LA Diam: 4.2 cm (2.7 - 3.8) LAESV Index (A-L): 23.91 ml/m Ao Diam: 3.0 cm (2.0 - 3.7) AV Cusp: 2.2 cm (1.5 - 2.6) MV EXCURSION: 12.495 mm (> 18.000) MV EF SLOPE: 42 mm/s (70 - 150) EPSS: 2.0 cm MV E Jared: 0.83 m/s MV DecT: 283 ms MV A Jared: 0.89 m/s MV E/A Ratio: 0.93 AV maxP.04 mmHg AV meanP.86 mmHg RAP: 5.00 mmHg RVSP: 45.29 mmHg FINDINGS -------- Sinus rhythm. This was a technically adequate study. The left ventricular size is normal. There is borderline concentric left ventricular hypertrophy. Overall left ventricular systolic function is normal with, an EF between 60 - 65 %. The right ventricle is normal in size. Normal LA size by volume 22+/-6 ml/m2. The right atrium is normal in size. The aortic valve is trileaflet and appears structurally normal. Trace to mild aortic regurgitation. Peak/mean gradient across the Aortic Valve is 17.04mmHg / 8.86mmHg. The mitral valve is normal. Mild tricuspid regurgitation present. There is mild to moderate pulmonary hypertension. The right ventricular systolic pressure, as measured by Doppler, is 45.29mmHg. Trace/mild (physiologic) pulmonic regurgitation. The aortic root size is normal. Normal inferior vena cava with normal inspiratory collapse consistent with estimated right atrial pre ssure of 5 mmHg. There is no pericardial effusion. CONCLUSIONS -------- 1. The left ventricular size is normal. 2. There is borderline concentric left ventricular hypertrophy. 3. Overall left ventricular systolic function is normal with, an EF between 60 - 65 %. 4. The aortic valve is trileaflet and appears structurally normal. 5. Trace to mild aortic regurgitation. 6. Peak/mean gradient across the Aortic Valve is 17.04mmHg / 8.86mmHg. 7. Mild tricuspid regurgitation present. 8. There is mild to moderate pulmonary hypertension. 9. The right ventricular systolic pressure, as measured by Doppler, is 45.29mmHg. 10. Trace/mild (physiologic) pulmonic regurgitation. 11. There is no pericardial effusion. SALES PROMOTION REPRESENTATIVE: Giselle Cloud RDCS
[2020-11-24] MEDS: SODIUM CHLORIDE 0.9% 1,000 ML IV SCH (12:43)
--- NOTE | 2020-11-24 13:05 | P.PN ---
Subjective Progress Note Date: 11/24/20 CHIEF COMPLAINT: Left breast lesions HISTORY OF PRESENT ILLNESS: Patient is hospitalized for Covid pneumonia. Surgical service is following her as patient's left breast lesions. Code stroke was called last night on patient. She was unable to move her left arm. CT scans of brain was negative stroke. And neurology has ordered MRI of the brain. Afebrile WBC 10.07 PHYSICAL EXAM: VITAL SIGNS: Reviewed. GENERAL: Well-developed in no acute distress. HEENT: No sclera icterus. Extraocular movements grossly intact. Moist buccal mucosa. Head is atraumatic, normocephalic. ABDOMEN: Soft. Nondistended. Nontender. NEUROLOGIC: Alert and oriented. Cranial nerves II through XII grossly intact. ASSESSMENT: 1. Two left breast lesions at 1 o'clock and 3 o'clock positions PLAN: -Continue supportive care -Dr. Lee will plan for outpatient biopsy of left breast lesions when patient is medically stable. Physician Photostatic Copy Maker note has been reviewed by physician. Signing provider agrees with the documented findings, assessment, and plan of care. Objective - Vital Signs Vital signs: Vital Signs Temp 97.9 F 11/24/20 10:00 Pulse 54 L 11/24/20 10:00 Resp 16 11/24/20 10:00 BP 130/73 11/24/20 10:00 Pulse Ox 93 L 11/24/20 10:00 Intake & Output 11/23/20 11/24/20 11/24/20 18:59 06:59 18:59 Intake Total 480 100 600 Balance 480 100 600 Intake: Intake, IV Titration 600 Amount Sodium Chloride 0.9% 1, 600 000 ml @ 75 mls/hr IV . [id number] [facility] Rx#:[id number] Oral 480 100 Other: # Voids 3 # Bowel Movements 2 - Labs CBC & Chem 7: 11/24/20 06:30 11/23/20 22:51 Labs: Abnormal Lab Results - Last 24 Hours (Table) 11/23/20 11/23/20 11/23/20 Range/Units 16:39 20:21 22:38 WBC (3.8-10.6) k/uL RBC (4.10-5.20) X 10*6/uL Hct (37.2-46.3) % Immature Gran # (0.00-0.04) X 10*3/uL Neutrophils # (1.3-7.7) k/uL Lymphocytes # (1.0-4.8) k/uL Eosinophils # (0.04-0.35) X 10*3/uL D-Dimer (<0.60) mg/L FEU Chloride (98-107) mmol/L BUN (7-17) mg/dL Creatinine (0.52-1.04) mg/dL Glucose (74-99) mg/dL POC Glucose (mg/dL) 292 H 306 H 171 H (75-99) mg/dL ALT (4-34) U/L C-Reactive Protein (0.0-0.8) mg/dL Triglycerides (0.0-149.0) mg/dL HDL Cholesterol (40.0-60.0) mg/dL 11/23/20 11/23/20 11/24/20 Range/Units 22:51 22:51 06:30 WBC 11.1 H 10.07 H (3.8-10.6) k/uL RBC 3.88 L (4.10-5.20) X 10*6/uL Hct 36.8 L (37.2-46.3) % Immature Gran # 0.07 H (0.00-0.04) X 10*3/uL Neutrophils # 8.8 H 7.78 H (1.3-7.7) k/uL Lymphocytes # 0.9 L (1.0-4.8) k/uL Eosinophils # 0 L (0.04-0.35) X 10*3/uL D-Dimer (<0.60) mg/L FEU Chloride 97 L (98-107) mmol/L BUN 35 H (7-17) mg/dL Creatinine 1.22 H (0.52-1.04) mg/dL Glucose 159 H (74-99) mg/dL POC Glucose (mg/dL) (75-99) mg/dL ALT 38 H (4-34) U/L C-Reactive Protein (0.0-0.8) mg/dL Triglycerides (0.0-149.0) mg/dL HDL Cholesterol (40.0-60.0) mg/dL 11/24/20 11/24/20 11/24/20 Range/Units 06:30 06:30 06:30 WBC (3.8-10.6) k/uL RBC (4.10-5.20) X 10*6/uL Hct (37.2-46.3) % Immature Gran # (0.00-0.04) X 10*3/uL Neutrophils # (1.3-7.7) k/uL Lymphocytes # (1.0-4.8) k/uL Eosinophils # (0.04-0.35) X 10*3/uL D-Dimer 0.92 H (<0.60) mg/L FEU Chloride (98-107) mmol/L BUN (7-17) mg/dL Creatinine (0.52-1.04) mg/dL Glucose (74-99) mg/dL POC Glucose (mg/dL) (75-99) mg/dL ALT (4-34) U/L C-Reactive Protein 4.5 H (0.0-0.8) mg/dL Triglycerides 162.0 H (0.0-149.0) mg/dL HDL Cholesterol 32.0 L (40.0-60.0) mg/dL 11/24/20 11/24/20 Range/Units 07:08 11:47 WBC (3.8-10.6) k/uL RBC (4.10-5.20) X 10*6/uL Hct (37.2-46.3) % Immature Gran # (0.00-0.04) X 10*3/uL Neutrophils # (1.3-7.7) k/uL Lymphocytes # (1.0-4.8) k/uL Eosinophils # (0.04-0.35) X 10*3/uL D-Dimer (<0.60) mg/L FEU Chloride (98-107) mmol/L BUN (7-17) mg/dL Creatinine (0.52-1.04) mg/dL Glucose (74-99) mg/dL POC Glucose (mg/dL) 167 H 198 H (75-99) mg/dL ALT (4-34) U/L C-Reactive Protein (0.0-0.8) mg/dL Triglycerides (0.0-149.0) mg/dL HDL Cholesterol (40.0-60.0) mg/dL Microbiology - Last 24 Hours (Table) 11/22/20 12:55 Blood Culture - Preliminary Blood No Growth after 24 hours 11/22/20 12:40 Blood Culture - Preliminary Blood No Growth after 24 hours
--- NOTE | 2020-11-24 14:38 | P.PN ---
Subjective Progress Note Date: 11/24/20 Principal diagnosis: Dyspnea, cough, hypoxia, pneumonia This is a 70-year-old female, that I'm asked to see because of COVID 19 pneumonia. The patient started having symptoms 10 or 11 days ago. The patient apparently went to some clinic in [place], but was discharged home. It is not clear to me that she was tested at that time. Her symptoms include muscle aches, joint is, cough, shortness of breath, pain in the chest, and diarrhea. Unfortunately, because her symptoms have been present for just a long time, she is really not a candidate for REM, TOCI or CP. She was seen in the emergency room and started on Decadron. The patient should also be on vitamin C, vitamin D3, and zinc. Finally, she should have an albuterol inhaler. Her chest x-ray and CAT scan are consistent with COVID 19 pneumonia. She tells me today, that she feeling a bit better than she was yesterday. Her primary care provider is Dr. Aneesh Davis. Her home medications include albuterol inhaler, Coreg, Lomotil, glimepiride, losartan/hydrochlorothiazide, and Aldactone. She is a lifelong nonsmoker. She doesn't drink or use any illicit drugs. Currently, she is on a couple liters of oxygen. White count is 6.6, hemoglobin 13.4, hematocrit 38.6, and platelet count 161,000. PT INR were normal. D-dimer was 1.12. Sodium 132, potassium 3.5, chlorides 96, CO2 27, anion gap 9, BUN 21, and creatinine 0.58. C-reactive protein was 152.1, LDH 749, ferritin 614, and pro- calcitonin level was 0.14 On 11/25/2019 patient seen in follow-up on medical floor. She is currently on 3 L of oxygen pulse ox is 93%, denies any worsening shortness of breath, she does have mild exertional dyspnea, no cough, patient developed strokelike symptoms last night at around 2300 with left hand and left arm weakness and numbness. CT of the head and angiography CT of the head and neck showed no acute abnormality, showed mild mediastinal lymphadenopathy. Her left arm weakness and numbness have improved, she was not candidate for TPA related to being on Eliquis. Echocardiogram was completed showing preserved LV function with EF of 60-65%, trace to mild aortic regurg, mild to moderate pulmonary hypertension with PA systolic of 45 mmHg, and mild tricuspid regurg. His chest x-ray shows stable patchy bilateral infiltrates. Patient was out of the window for many treatments for COVID 19 pneumonia, including monoclonal antibody, convalescent plasma, Remdesivir, currently just on Decadron 6 mg daily, vitamins, and Levaquin was discontinued, patient is currently on aspirin, Plavix, and Lipitor per neurology. Patient has been stable from pulmonary perspective the last 24 hours without worsening dyspnea or hypoxemia Objective - Vital Signs Vital signs: Vital Signs Temp 97.8 F 11/24/20 14:00 Pulse 65 11/24/20 14:00 Resp 18 11/24/20 14:00 BP 156/74 11/24/20 14:00 Pulse Ox 90 L 11/24/20 14:00 Intake & Output 11/23/20 11/24/20 11/24/20 18:59 06:59 18:59 Intake Total 480 100 600 Balance 480 100 600 Intake: Intake, IV Titration 600 Amount Sodium Chloride 0.9% 1, 600 000 ml @ 75 mls/hr IV . [id number] [facility] Rx#:[id number] Oral 480 100 Other: # Voids 3 # Bowel Movements 2 - Exam GENERAL EXAM: Alert, very pleasant, 70-year-old overweight white female, on 3 L of oxygen with a pulse ox of 96%, comfortable in no apparent distress. HEAD: Normocephalic/atraumatic. EYES: Normal reaction of pupils, equal size. Conjunctiva pink, sclera white. NOSE: Clear with pink turbinates. THROAT: No erythema or exudates. NECK: No masses, no JVD, no thyroid enlargement, no adenopathy. CHEST: No chest wall deformity. Symmetrical expansion. LUNGS: Equal air entry with no crackles, wheeze, rhonchi or dullness. CVS: Regular rate and rhythm, normal S1 and S2, no gallops, no murmurs, no rubs ABDOMEN: Soft, nontender. No hepatosplenomegaly, normal bowel sounds, no guarding or rigidity. EXTREMITIES: No clubbing, no edema, no cyanosis, 2+ pulses and upper and lower extremities. MUSCULOSKELETAL: Muscle strength and tone normal. SPINE: No scoliosis or deformity SKIN: No rashes CENTRAL NERVOUS SYSTEM: Alert and oriented -3. Left arm weakness persists, but improving tone is normal in all 4 extremities. PSYCHIATRIC: Alert and oriented -3. Appropriate affect. Intact judgment and insight. - Labs CBC & Chem 7: 11/24/20 06:30 11/23/20 22:51 Labs: Abnormal Lab Results - Last 24 Hours (Table) 11/23/20 11/23/20 11/23/20 Range/Units 16:39 20:21 22:38 WBC (3.8-10.6) k/uL RBC (4.10-5.20) X 10*6/uL Hct (37.2-46.3) % Immature Gran # (0.00-0.04) X 10*3/uL Neutrophils # (1.3-7.7) k/uL Lymphocytes # (1.0-4.8) k/uL Eosinophils # (0.04-0.35) X 10*3/uL D-Dimer (<0.60) mg/L FEU Chloride (98-107) mmol/L BUN (7-17) mg/dL Creatinine (0.52-1.04) mg/dL Glucose (74-99) mg/dL POC Glucose (mg/dL) 292 H 306 H 171 H (75-99) mg/dL ALT (4-34) U/L C-Reactive Protein (0.0-0.8) mg/dL Triglycerides (0.0-149.0) mg/dL HDL Cholesterol (40.0-60.0) mg/dL 11/23/20 11/23/20 11/24/20 Range/Units 22:51 22:51 06:30 WBC 11.1 H 10.07 H (3.8-10.6) k/uL RBC 3.88 L (4.10-5.20) X 10*6/uL Hct 36.8 L (37.2-46.3) % Immature Gran # 0.07 H (0.00-0.04) X 10*3/uL Neutrophils # 8.8 H 7.78 H (1.3-7.7) k/uL Lymphocytes # 0.9 L (1.0-4.8) k/uL Eosinophils # 0 L (0.04-0.35) X 10*3/uL D-Dimer (<0.60) mg/L FEU Chloride 97 L (98-107) mmol/L BUN 35 H (7-17) mg/dL Creatinine 1.22 H (0.52-1.04) mg/dL Glucose 159 H (74-99) mg/dL POC Glucose (mg/dL) (75-99) mg/dL ALT 38 H (4-34) U/L C-Reactive Protein (0.0-0.8) mg/dL Triglycerides (0.0-149.0) mg/dL HDL Cholesterol (40.0-60.0) mg/dL 11/24/20 11/24/20 11/24/20 Range/Units 06:30 06:30 06:30 WBC (3.8-10.6) k/uL RBC (4.10-5.20) X 10*6/uL Hct (37.2-46.3) % Immature Gran # (0.00-0.04) X 10*3/uL Neutrophils # (1.3-7.7) k/uL Lymphocytes # (1.0-4.8) k/uL Eosinophils # (0.04-0.35) X 10*3/uL D-Dimer 0.92 H (<0.60) mg/L FEU Chloride (98-107) mmol/L BUN (7-17) mg/dL Creatinine (0.52-1.04) mg/dL Glucose (74-99) mg/dL POC Glucose (mg/dL) (75-99) mg/dL ALT (4-34) U/L C-Reactive Protein 4.5 H (0.0-0.8) mg/dL Triglycerides 162.0 H (0.0-149.0) mg/dL HDL Cholesterol 32.0 L (40.0-60.0) mg/dL 11/24/20 11/24/20 Range/Units 07:08 11:47 WBC (3.8-10.6) k/uL RBC (4.10-5.20) X 10*6/uL Hct (37.2-46.3) % Immature Gran # (0.00-0.04) X 10*3/uL Neutrophils # (1.3-7.7) k/uL Lymphocytes # (1.0-4.8) k/uL Eosinophils # (0.04-0.35) X 10*3/uL D-Dimer (<0.60) mg/L FEU Chloride (98-107) mmol/L BUN (7-17) mg/dL Creatinine (0.52-1.04) mg/dL Glucose (74-99) mg/dL POC Glucose (mg/dL) 167 H 198 H (75-99) mg/dL ALT (4-34) U/L C-Reactive Protein (0.0-0.8) mg/dL Triglycerides (0.0-149.0) mg/dL HDL Cholesterol (40.0-60.0) mg/dL Microbiology - Last 24 Hours (Table) 11/22/20 12:55 Blood Culture - Preliminary Blood No Growth after 24 hours 11/22/20 12:40 Blood Culture - Preliminary Blood No Growth after 24 hours Assessment and Plan Plan: Assessment: #1. Acute hypoxic respiratory failure secondary to COVID 19 pneumonitis, patient was out of the window for Remdesivir, or convalescent plasma #2. Acute onset left arm and hand weakness, possibility of stroke, brain CT amd CT angiography of the brain did not show acute abnormality, MRI of the brain is pending this afternoon #3. Hypertension #4. Diabetes type 2 #5. Left breast lesions at 1:00 and 3:00 positions in the left breast outpatient biopsy is planned when medically stable Plan: Continue with Decadron, Lovenox has been placed on hold, vision is now on aspirin and Plavix and Lipitor view of acute neurologic symptoms and possibility of stroke. No worsening dyspnea or cough from pulmonary perspective, we'll continue supportive treatment at this time. Awaiting results of the MRI of the brain. We'll continue to follow I performed a history & physical examination of the patient and discussed their management with my nurse practitioner, Shahla Beck. I reviewed the nurse practitioner's note and agree with the documented findings and plan of care. Lung sounds are positive for diminished breath sounds. The findings and the impression was discussed with the patient. I attest to the documentation by the nurse practitioner. Time with Patient: Less than 30
--- NOTE | 2020-11-24 14:45 | MR ---
EXAMINATION TYPE: MR brain wo con DATE OF EXAM: 11/24/2020 COMPARISON: CT brain from yesterday HISTORY: Stroke: left upper extremity weakness; acute onset neural deficit TECHNIQUE: Multiplanar, multisequence imaging of the brain and brainstem is performed without IV cont rast. FINDINGS: Exam slightly suboptimal secondary to patient motion. Diffusion weighted images demonstrate increased signal on diffusion weighted images with diminished s ignal on ADC mapping involving the right parietal lobe predominantly subcortical levels with some srini per extension inferiorly, there is additional 3 mm focus in the right parietal periventricular white matter at level of perez radiata image 144 series 305. Areas correspond to T2 hyperintensity seen be st on [facility] imaging. Background mild diffuse ventricular and sulcal prominence. Minimal T2 hyperintense white matter rivera es. Midline structures demonstrate normal morphology. The craniocervical junction appears within normal limits. Normal vascular flow voids are present. The visualized sinuses are clear and the globes are i ntact. Increased fluid signal right mastoid air cells redemonstrated. IMPRESSION: 1. Evolving acute infarct right parietal lobe posterior watershed distribution. 2. There is mild diffuse cerebral atrophy and minimal chronic small vessel ischemic change. 3. Abnormal fluid signal right mastoid air cells, correlate clinically for right-sided acute mastoidi tis
--- NOTE | 2020-11-24 16:04 | P.PN ---
Subjective This is a pleasant 70 years old female with past medical history of hypertension and diabetes mellitus type 2. Presents because of dyspnea and coughing. Patient states that she wanted to [facility] for dyspnea 10 days ago , they did perez virus test for her , and today she received a phone call stating that result is positive for covid 19 infection and they asked her to come to the hospital again for oxygen treatment, but she decided to come to [facility]. Also patient has significant cough with phlegm. She may have some little chest pain from coughing. Also she has diarrhea about 4-5 times per day but no abdominal pain or nausea vomiting Patient is afebrile and she saturates 94% on 3 L oxygen via nasal cannula and 90% on room air. CBC is unremarkable. INR 0.9. D-dimer is slightly elevated at 1.1. Sodium 132 , potassium 3.5, creatinine normal 0.5. Increase inflammatory markers with ferritin 6.3, lactate dehydrogenase 749 and C-reactive protein 152. Liver enzymes are not elevated as well as bilirubin CTA of chest is negative for pulmonary embolism, bilateral groundglass opacities suspicious for Covid 19 infection. Also she has 1.3 x 1.3 x 1.5 cm left breast lesion She is on Lovenox, dexamethasone, zinc and vitamin C. Pulmonary team consult from ED 11/23/2020 Patient was admitted for Covid pneumonia and mild hypoxia. She still needs 2-3 L oxygen to keep her saturation at 92-94%. She is afebrile. She feels her breathing a little bit better even when she goes to the restroom she still have diarrhea about 3-4 times yesterday and was this morning. But no abdominal pain or vomiting. She is eating most of her meal Her sugar is slightly elevated around 240s. She is currently on dexamethasone, zinc and vitamin C. Pulmonary team were consulted Also patient with suspicious left breast lesion about 1.5 cm, confirmed with left breast ultrasound today. Dr. Ruffin from [facility] was consulted who referred the consult to Gen. surgery for possible biopsy . Patient is aware of this problem and management plan 11/24/2020 Yesterday in the evening patient developed weakness in the left upper extremity with inability to move the arm or the hands, when nurse contacted me we called code stroke, CT of the brain and CT of the brain and cervical spine was unremarkable. Neurologist consulted who started on aspirin and Plavix and recommended to hold Eliquis and order MRI of the brain. 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 He started her on Eliquis for DVT prophylaxis and because of her Covid however it was held today per neurologist recommendation given her stroke while started her on aspirin and Plavix. Continue with S CD for mechanical prophylaxis Her breathing is improving as per patient, diarrhea is improving. Her air entry is improving, she still saturating 90% on 3 L oxygen. D-dimer is down to 0.9. WBC is slightly down to 10.0 7K. Lactate dehydrogenase is normal at 231 and C-reactive protein is improving to 4.5 Chest x-ray: Stable bilateral infiltrates, echo showed ejection fraction of 60- 65% with borderline LVH. MRI of the brain: Evolving acute infarct of the right parietal lobe. Review of Systems CONSTITUTIONAL: No fever, no malaise, no fatigue. HEENT: No recent visual problems or hearing problems. Denied any sore throat. CARDIOVASCULAR: No orthopnea, PND, no palpitations, no syncope. PULMONARY: No upper respiratory symptoms, no hemoptysis. GASTROINTESTINAL: No diarrhea, no nausea, no vomiting, no abdominal pain. Normoactive bowel sounds. NEUROLOGICAL: No headaches, no weakness, no numbness. Active Medications Generic Name Dose Route Start Last Admin Trade Name Freq PRN Reason Stop Dose Admin Albuterol Sulfate 2 puff 11/22/20 19:20 11/24/20 12:21 Albuterol Hfa Inhaler INHALATION 2 puff RT-QID PRN Administration Shortness Of Breath Amlodipine Besylate 5 mg 11/23/20 09:00 11/24/20 07:49 Amlodipine 5 Mg Tab PO Not Given DAILY [facility] Ascorbic Acid 1,000 mg 11/23/20 09:00 11/24/20 07:49 Ascorbic Acid 500 Mg Tab PO 1,000 mg DAILY [facility] Administration Aspirin 81 mg 11/24/20 09:00 11/24/20 10:08 Aspirin 81 Mg PO 81 mg DAILY [facility] Administration Atorvastatin Calcium 40 mg 11/24/20 21:00 Atorvastatin 40 Mg Tab PO HS [facility] Carvedilol 6.25 mg 11/23/20 07:30 11/24/20 07:49 Carvedilol 6.25 Mg Tab PO 6.25 mg AC-BID [facility] Administration Clopidogrel Bisulfate 75 mg 11/24/20 09:00 11/24/20 10:08 Clopidogrel 75 Mg Tab PO 75 mg DAILY [facility] Administration Dexamethasone 6 mg 11/23/20 09:00 11/24/20 07:48 Dexamethasone 2 Mg Tab PO 6 mg DAILY [facility] Administration Glimepiride 2 mg 11/22/20 21:00 11/24/20 07:49 Glimepiride 2 Mg Tab PO 2 mg BID [facility] Administration Guaifenesin/Dextromethorphan 10 ml 11/23/20 01:00 Guaifenesin-Dm 100-10mg/5ml 10 Ml Cup PO Q6H PRN Cough HCTZ/Losartan Potassium 2 each 11/23/20 09:00 11/24/20 07:49 Losartan-Hctz 50-12.5 Mg 1 Each Tab PO Not Given DAILY [facility] Sodium Chloride 1,000 mls @ 75 mls/hr 11/23/20 23:45 11/24/20 12:43 Saline 0.9% IV 75 mls/hr .[id number] [facility] Administration Insulin Aspart 0 unit 11/22/20 21:00 11/24/20 12:44 Insulin Aspart (Novolog) 100 Unit/Ml Vial SQ 3 unit ACHS [facility] Administration Protocol Ondansetron HCl 4 mg 11/22/20 21:05 11/22/20 21:14 Ondansetron 4 Mg/2 Ml Vial IVP 4 mg Q6HR PRN Administration Nausea And Vomiting Spironolactone 25 mg 11/23/20 09:00 11/24/20 07:49 Spironolactone 25 Mg Tab PO 25 mg DAILY [facility] Administration Zinc Sulfate 220 mg 11/23/20 09:00 11/24/20 07:48 Zinc Sulfate 220 Mg Cap PO 220 mg DAILY [facility] Administration Objective - Vital Signs Vital signs: Vital Signs Temp 97.8 F 11/24/20 14:00 Pulse 65 11/24/20 14:00 Resp 18 11/24/20 14:00 BP 156/74 11/24/20 14:00 Pulse Ox 90 L 11/24/20 14:00 Intake & Output 11/23/20 11/24/20 11/24/20 18:59 06:59 18:59 Intake Total 480 100 600 Balance 480 100 600 Intake: Intake, IV Titration 600 Amount Sodium Chloride 0.9% 1, 600 000 ml @ 75 mls/hr IV . [id number] [facility] Rx#:[id number] Oral 480 100 Other: # Voids 3 # Bowel Movements 2 - Exam GENERAL: The patient is alert and oriented x3, not in any acute distress. Well developed, well nourished. HEENT: Pupils are round and equally reacting to light. EOMI. No scleral icterus. No conjunctival pallor. Normocephalic, atraumatic. No pharyngeal erythema. No thyromegaly. CARDIOVASCULAR: S1 and S2 present. No murmurs, rubs, or gallops. -PULMONARY: Chest is clear to auscultation, no bilateral scattered wheezing ABDOMEN: Soft, nontender, nondistended, normoactive bowel sounds. No palpable organomegaly. MUSCULOSKELETAL: No joint swelling or deformity. EXTREMITIES: No cyanosis, clubbing, or pedal edema. -NEUROLOGICAL: Cranial nerves are grossly intact. 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 Sensation is intact - Labs CBC & Chem 7: 11/24/20 06:30 11/23/20 22:51 Labs: Abnormal Lab Results - Last 24 Hours (Table) 11/23/20 11/23/20 11/23/20 Range/Units 16:39 20:21 22:38 WBC (3.8-10.6) k/uL RBC (4.10-5.20) X 10*6/uL Hct (37.2-46.3) % Immature Gran # (0.00-0.04) X 10*3/uL Neutrophils # (1.3-7.7) k/uL Lymphocytes # (1.0-4.8) k/uL Eosinophils # (0.04-0.35) X 10*3/uL D-Dimer (<0.60) mg/L FEU Chloride (98-107) mmol/L BUN (7-17) mg/dL Creatinine (0.52-1.04) mg/dL Glucose (74-99) mg/dL POC Glucose (mg/dL) 292 H 306 H 171 H (75-99) mg/dL ALT (4-34) U/L C-Reactive Protein (0.0-0.8) mg/dL Triglycerides (0.0-149.0) mg/dL HDL Cholesterol (40.0-60.0) mg/dL 11/23/20 11/23/20 11/24/20 Range/Units 22:51 22:51 06:30 WBC 11.1 H 10.07 H (3.8-10.6) k/uL RBC 3.88 L (4.10-5.20) X 10*6/uL Hct 36.8 L (37.2-46.3) % Immature Gran # 0.07 H (0.00-0.04) X 10*3/uL Neutrophils # 8.8 H 7.78 H (1.3-7.7) k/uL Lymphocytes # 0.9 L (1.0-4.8) k/uL Eosinophils # 0 L (0.04-0.35) X 10*3/uL D-Dimer (<0.60) mg/L FEU Chloride 97 L (98-107) mmol/L BUN 35 H (7-17) mg/dL Creatinine 1.22 H (0.52-1.04) mg/dL Glucose 159 H (74-99) mg/dL POC Glucose (mg/dL) (75-99) mg/dL ALT 38 H (4-34) U/L C-Reactive Protein (0.0-0.8) mg/dL Triglycerides (0.0-149.0) mg/dL HDL Cholesterol (40.0-60.0) mg/dL 11/24/20 11/24/20 11/24/20 Range/Units 06:30 06:30 06:30 WBC (3.8-10.6) k/uL RBC (4.10-5.20) X 10*6/uL Hct (37.2-46.3) % Immature Gran # (0.00-0.04) X 10*3/uL Neutrophils # (1.3-7.7) k/uL Lymphocytes # (1.0-4.8) k/uL Eosinophils # (0.04-0.35) X 10*3/uL D-Dimer 0.92 H (<0.60) mg/L FEU Chloride (98-107) mmol/L BUN (7-17) mg/dL Creatinine (0.52-1.04) mg/dL Glucose (74-99) mg/dL POC Glucose (mg/dL) (75-99) mg/dL ALT (4-34) U/L C-Reactive Protein 4.5 H (0.0-0.8) mg/dL Triglycerides 162.0 H (0.0-149.0) mg/dL HDL Cholesterol 32.0 L (40.0-60.0) mg/dL 11/24/20 11/24/20 Range/Units 07:08 11:47 WBC (3.8-10.6) k/uL RBC (4.10-5.20) X 10*6/uL Hct (37.2-46.3) % Immature Gran # (0.00-0.04) X 10*3/uL Neutrophils # (1.3-7.7) k/uL Lymphocytes # (1.0-4.8) k/uL Eosinophils # (0.04-0.35) X 10*3/uL D-Dimer (<0.60) mg/L FEU Chloride (98-107) mmol/L BUN (7-17) mg/dL Creatinine (0.52-1.04) mg/dL Glucose (74-99) mg/dL POC Glucose (mg/dL) 167 H 198 H (75-99) mg/dL ALT (4-34) U/L C-Reactive Protein (0.0-0.8) mg/dL Triglycerides (0.0-149.0) mg/dL HDL Cholesterol (40.0-60.0) mg/dL Microbiology - Last 24 Hours (Table) 11/22/20 12:55 Blood Culture - Preliminary Blood No Growth after 48 hours 11/22/20 12:40 Blood Culture - Preliminary Blood No Growth after 48 hours Assessment and Plan Assessment: Acute right parietal lobe stroke with left upper extremity weakness Acute Covid 19 pneumonitis Acute hypoxic respiratory failure secondary to above Acute Covid 19 gastroenteritis Increase inflammatory markers Left breast lesion 1.5 cm Hypertension Type 2 diabetes mellitus Plan: This is a pleasant 70 years old female who presents with Covid pneumonia. Continue with dexamethasone, vitamin C and zinc. Continue with oxygen as needed. Continue Lovenox. Pulmonary team consult. Neuro consult is david penny, continue with aspirin and Plavix and statin Follow-up for left breast lesion , lesion is suspicious per CAT scan and ultrasound. Gen. surgery team were consulted Continue with same treatment. Continue with symptomatic treatment. Resume home medication. Monitor lytes and vitals. DVT and GI prophylaxis. Further recommendations depends on the clinical course of the patient DVT prophylaxis: Continue with mechanical. Also continue with aspirin and Plavix GI Prophylaxis: Pepcid Prognosis is guarded
[2020-11-24 16:44] LABS: Glucose,Whole Blood 351 mg/dL (75-99)
[2020-11-24 20:43] LABS: Glucose,Whole Blood 230 mg/dL (75-99)
[2020-11-24] MEDS: ATORVASTATIN 40 MG TAB PO SCH (20:54)
[2020-11-24] MEDS: INSULIN DETEMIR (LEVEMIR) 100 UNIT/ML SYR SQ SCH (21:52)
[2020-11-25] MEDS: SODIUM CHLORIDE 0.9% 1,000 ML IV SCH ×2 (02:31→17:50)
[2020-11-25 07:02] LABS: Glucose,Whole Blood 130 mg/dL (75-99)
[2020-11-25] MEDS: SPIRONOLACTONE 25 MG TAB PO SCH (07:35)
[2020-11-25] MEDS: ZINC SULFATE 220 MG CAP PO SCH (07:35)
[2020-11-25] MEDS: ASPIRIN 81 MG PO SCH (07:36)
[2020-11-25] MEDS: ASCORBIC ACID 500 MG TAB PO SCH (07:36)
[2020-11-25] MEDS: amLODIPine 5 MG TAB PO SCH (07:36)
[2020-11-25] MEDS: GLIMEPIRIDE 2 MG TAB PO SCH ×2 (07:36→20:31)
[2020-11-25] MEDS: LOSARTAN-HCTZ 50-12.5 MG 1 EACH TAB PO SCH (07:36)
[2020-11-25] MEDS: dexAMETHasone 2 MG TAB PO SCH (07:36)
[2020-11-25] MEDS: carvediloL 6.25 MG TAB PO SCH ×2 (07:36→17:50)
[2020-11-25] MEDS: CLOPIDOGREL 75 MG TAB PO SCH (07:36)
[2020-11-25] MEDS: INSULIN ASPART (NovoLOG) 100 UNIT/ML VIAL SQ SCH ×4 (07:37→20:31)
--- NOTE | 2020-11-25 09:31 | P.PN ---
Subjective Progress Note Date: 11/25/20 The patient was seen at bedside and she feels she is having more strength over the left hand compared to yesterday. Denies any further numbness. She also denies any new neurological deficits. MRI of the brain was done yesterday and that it's reported as evolving acute infarct in the right parietal lobe posterior watershed distribution. There is mild diffuse cerebral atrophy and minimal chronic small vessel ischemic change. Abnormal fluid signal right mastoid air cell, correlate clinically for right sided acute mastoiditis. I personally reviewed the MRI of the brain and I do agree that there is acute right parietal ischemic stroke as well as a right traumatic ischemic stroke. I don't believe that this is watershed over the right parietal. Yesterday I spoke with the patient's daughter (Padmini) via phone and updated her on patient's condition. Objective - Vital Signs Vital signs: Vital Signs Temp 98.1 F 11/25/20 06:00 Pulse 56 L 11/25/20 06:00 Resp 20 11/25/20 06:00 BP 134/66 11/25/20 06:00 Pulse Ox 95 11/25/20 06:00 Intake & Output 11/24/20 11/25/20 11/25/20 18:59 06:59 18:59 Intake Total 600 Balance 600 Intake: Intake, IV Titration 600 Amount Sodium Chloride 0.9% 1, 600 000 ml @ 75 mls/hr IV . [id number] [facility] Rx#:[id number] Other: Voiding Method Bedside Commode # Voids 2 - Exam GENERAL: The patient is lying in bed and is not in acute distress. NEUROLOGICAL: Higher mental function: The patient is awake, alert, oriented to self, place and time. Patient is following commands. No aphasia and no neglect. Cranial nerves: The pupils are round, equal and reactive to light and ac commodation. Visual moncada are full to confrontation throughout. Extraocular movement is intact no nystagmus is noted. Facial sensation is normal to touch throughout. The facial strength is normal throughout. Hearing is normal bilaterally to hand rub. Tongue is midline and moved [id number] without any difficulty. No dysarthria is noted. Shoulder shrug is normal bilaterally. Motor: Gait is normal. The strength is left upper extremity proximally is 4/5 while hand is 3-4-/5 . Otherwise 5/5 over the left lower extremity and right upper and lower extremity. Normal tone and bulk. Cerebellum: Normal finger to nose over the right but could not assess left because of weakness. Sensation: Sensation is normal to touch throughout. Reflexes (right/left): 2+ throughout. Plantars are downgoing bilaterally. - Labs CBC & Chem 7: 11/24/20 06:30 11/23/20 22:51 Labs: Abnormal Lab Results - Last 24 Hours (Table) 11/24/20 11/24/20 11/24/20 Range/Units 06:30 06:30 06:30 WBC 10.07 H (4.50-10.00) X 10*3/uL RBC 3.88 L (4.10-5.20) X 10*6/uL Hct 36.8 L (37.2-46.3) % Immature Gran # 0.07 H (0.00-0.04) X 10*3/uL Neutrophils # 7.78 H (1.80-7.70) X 10*3/uL Eosinophils # 0 L (0.04-0.35) X 10*3/uL POC Glucose (mg/dL) (75-99) mg/dL C-Reactive Protein 4.5 H (0.0-0.8) mg/dL Triglycerides 162.0 H (0.0-149.0) mg/dL HDL Cholesterol 32.0 L (40.0-60.0) mg/dL 11/24/20 11/24/20 11/24/20 Range/Units 11:47 16:42 20:39 WBC (4.50-10.00) X 10*3/uL RBC (4.10-5.20) X 10*6/uL Hct (37.2-46.3) % Immature Gran # (0.00-0.04) X 10*3/uL Neutrophils # (1.80-7.70) X 10*3/uL Eosinophils # (0.04-0.35) X 10*3/uL POC Glucose (mg/dL) 198 H 351 H 230 H (75-99) mg/dL C-Reactive Protein (0.0-0.8) mg/dL Triglycerides (0.0-149.0) mg/dL HDL Cholesterol (40.0-60.0) mg/dL 11/25/20 Range/Units 07:01 WBC (4.50-10.00) X 10*3/uL RBC (4.10-5.20) X 10*6/uL Hct (37.2-46.3) % Immature Gran # (0.00-0.04) X 10*3/uL Neutrophils # (1.80-7.70) X 10*3/uL Eosinophils # (0.04-0.35) X 10*3/uL POC Glucose (mg/dL) 130 H (75-99) mg/dL C-Reactive Protein (0.0-0.8) mg/dL Triglycerides (0.0-149.0) mg/dL HDL Cholesterol (40.0-60.0) mg/dL Microbiology - Last 24 Hours (Table) 11/22/20 12:55 Blood Culture - Preliminary Blood No Growth after 48 hours 11/22/20 12:40 Blood Culture - Preliminary Blood No Growth after 48 hours Assessment and Plan Assessment: This is a 70-year-old woman with multiple medical problems who presented to the emergency department on 11/22/2020 for coughing and dyspnea. She was found to have the Covid 19 positive pneumonia. On the 11/23/2020 patient noticed the left upper extremity weakness and numbness and she had NIH of 5. She did not receive TPA since she is on Eliquis. Acute ischemic stroke (right parietal and right thalamus with Left upper extremity weakness predominantly in the left hand and that transient sensory loss in the left upper extremity). Etiology unknown. Possibly Embolic vs since there are increase risk with stroke from COVID 19 Acute hypoxemic respiratory failure secondary due to Covid 19 pneumonia Acute Covid 19 gastroenteritis Poorly controlled diabetes mellitus (HbA1c: 8.7) Hypertriglyceridemia Left breast lesion about 1.5 cm Hypertension Plan: CT of the head on 11/23/2020 and reported as mild atrophy. No acute intracranial abnormality. CT angiography of the head and neck was reported as negative for both. It shows mild mediastinal lymphadenopathy. MRI of the brain was done yesterday and that it's reported as evolving acute infarct in the right parietal lobe posterior watershed distribution. There is mild diffuse cerebral atrophy and minimal chronic small vessel ischemic change. Abnormal fluid signal right mastoid air cell, correlate clinically for right sided acute mastoiditis. I personally reviewed the MRI of the brain and I do agree that there is acute right parietal ischemic stroke as well as a right traumatic ischemic stroke. I don't believe that this is watershed over the right parietal. Continue aspirin 81 mg and Plavix 75 mg a daily for 21 days then after that to discontinue Plavix 75mg and to indefinitely be on aspirin 81 mg daily. Continue Lipitor 40 mg for secondary stroke prophylaxis. 2-D echo was reported as borderline concentric left ventricular hypertrophy. Ejection fraction of 60-65%. Normal left atrial size by volume. Lipid panel: Triglycerides 162, cholestrol 154, LDL 89, HDL 32 HbA1c: 8.7 PT and OT are consulted. Continue every 4 neuro checks Continue cardiac monitoring Consulted cardiology team for ALYSSA. Ordered event monitor and possibly loop recorder down the line. Recommend tighter control of glucose but will defer the management to the primary team. Possibly consider adding fiber 8 since the patient has a slight elevated triglyceride but will defer the management to the primary team. Grave Cleaner on board for the patient covert 19 and pneumonia. Upon discharge the patient is to follow up with a neurologist as outpatient within 1-2 weeks. We'll defer the rest of the medical management to the primary team. Regarding the DVT prophylaxis I notified that the primary team that I would recommend SCDs (since patient is allergic to heparin). Plan was discussed with the patient. Will continue to follow. Florentin Cole M.D. Neuro-hospitalist Time with Patient: Less than 30
[2020-11-25 11:21] LABS: HCT 36.7 % (37.2-46.3); HGB 12.1 g/dL (12.0-15.0); MCH 31.7 pg (27.0-32.0); MCV 96.1 fL (80.0-97.0); Mean Platelet Volume 11.3 fL (9.5-12.2); Platelet Count 271 X 10*3/uL (140-440); RBC 3.82 X 10*6/uL (4.10-5.20); RDW 12.6 % (11.5-14.5); WBC 9.02 X 10*3/uL (4.50-10.00)
[2020-11-25] MEDS: ALBUTEROL HFA INHALER INHALATION PRN ×3 (11:39→19:04)
[2020-11-25 11:48] LABS: Glucose,Whole Blood 195 mg/dL (75-99)
[2020-11-25 12:25] LABS: African American GFR (CKD) 76.1 (60.0-200.0); Anion Gap 8.4 mmol/L (4.00-12.00); BUN/Creat Ratio 35.56 Ratio (12.00-20.00); Calcium 8.5 mg/dL (8.7-10.3); Carbon Dioxide 27.6 mmol/L (21.6-31.8); Non-African American GFR(CKD) 65.7 (60.0-200.0); Potassium 3.6 mmol/L (3.5-5.5)
--- NOTE | 2020-11-25 12:41 | P.PN ---
Subjective This is a pleasant 70 years old female with past medical history of hypertension and diabetes mellitus type 2. Presents because of dyspnea and coughing. Patient states that she wanted to [facility] for dyspnea 10 days ago , they did perez virus test for her , and today she received a phone call stating that result is positive for covid 19 infection and they asked her to come to the hospital again for oxygen treatment, but she decided to come to [facility]. Also patient has significant cough with phlegm. She may have some little chest pain from coughing. Also she has diarrhea about 4-5 times per day but no abdominal pain or nausea vomiting Patient is afebrile and she saturates 94% on 3 L oxygen via nasal cannula and 90% on room air. CBC is unremarkable. INR 0.9. D-dimer is slightly elevated at 1.1. Sodium 132 , potassium 3.5, creatinine normal 0.5. Increase inflammatory markers with ferritin 6.3, lactate dehydrogenase 749 and C-reactive protein 152. Liver enzymes are not elevated as well as bilirubin CTA of chest is negative for pulmonary embolism, bilateral groundglass opacities suspicious for Covid 19 infection. Also she has 1.3 x 1.3 x 1.5 cm left breast lesion She is on Lovenox, dexamethasone, zinc and vitamin C. Pulmonary team consult from ED 11/23/2020 Patient was admitted for Covid pneumonia and mild hypoxia. She still needs 2-3 L oxygen to keep her saturation at 92-94%. She is afebrile. She feels her breathing a little bit better even when she goes to the restroom she still have diarrhea about 3-4 times yesterday and was this morning. But no abdominal pain or vomiting. She is eating most of her meal Her sugar is slightly elevated around 240s. She is currently on dexamethasone, zinc and vitamin C. Pulmonary team were consulted Also patient with suspicious left breast lesion about 1.5 cm, confirmed with left breast ultrasound today. Dr. Ruffin from [facility] was consulted who referred the consult to Gen. surgery for possible biopsy . Patient is aware of this problem and management plan 11/24/2020 Yesterday in the evening patient developed weakness in the left upper extremity with inability to move the arm or the hands, when nurse contacted me we called code stroke, CT of the brain and CT of the brain and cervical spine was unremarkable. Neurologist consulted who started on aspirin and Plavix and recommended to hold Eliquis and order MRI of the brain. This morning her weakness in the left upper extremity is significantly improved however she still have weakness in the abducted her arm although she can move the double her head and and her hand medical detailist Lovenox and heparin could not be given because she is ALLERGIC to pork. He started her on Eliquis for DVT prophylaxis and because of her Covid however it was held today per neurologist recommendation given her stroke while started her on aspirin and Plavix. Continue with S CD for mechanical prophylaxis Her breathing is improving as per patient, diarrhea is improving. Her air entry is improving, she still saturating 90% on 3 L oxygen. D-dimer is down to 0.9. WBC is slightly down to 10.0 7K. Lactate dehydrogenase is normal at 231 and C-reactive protein is improving to 4.5 Chest x-ray: Stable bilateral infiltrates, echo showed ejection fraction of 60- 65% with borderline LVH. MRI of the brain: Evolving acute infarct of the right parietal lobe. 11/25/2020 Patient breathing is a stable, she is improving gradually. She is saturating 97% on 2 L oxygen via nasal cannula. And her labs including CBC and BMP are stable and within the reference range, sugar is controlled MRI of the brain showing right acute parietal stroke, She denies headache and her left upper extremity weakness is significantly improved. Her left shoulder and elbow function are back to baseline as per patient, she can move her arm freely above her head. She still have some residual weakness in her left hand however it's is significantly improved even compared to yesterday and on my examination she have recently strong medical detailist on her left hand, slightly weaker than her right hand. Patient was instructed and advised to continue doing physical therapy and occupational therapy and she verbalized understanding and acceptance. Neurologist evaluated the patient and embolic event is suspected versus thrombotic stroke secondary to Covid in 19 infection, cardiology consult for a ALYSSA and event monitor is recommended and cold Review of Systems CONSTITUTIONAL: No fever, no malaise, no fatigue. HEENT: No recent visual problems or hearing problems. Denied any sore throat. CARDIOVASCULAR: No orthopnea, PND, no palpitations, no syncope. PULMONARY: No upper respiratory symptoms, no hemoptysis. GASTROINTESTINAL: No diarrhea, no nausea, no vomiting, no abdominal pain. Normoactive bowel sounds. NEUROLOGICAL: No headaches, no weakness, no numbness. Active Medications Generic Name Dose Route Start Last Admin Trade Name Freq PRN Reason Stop Dose Admin Albuterol Sulfate 2 puff 11/22/20 19:20 11/25/20 11:39 Albuterol Hfa Inhaler INHALATION 2 puff RT-QID PRN Administration Shortness Of Breath Amlodipine Besylate 5 mg 11/23/20 09:00 11/25/20 07:36 Amlodipine 5 Mg Tab PO 5 mg DAILY [facility] Administration Ascorbic Acid 1,000 mg 11/23/20 09:00 11/25/20 07:36 Ascorbic Acid 500 Mg Tab PO 1,000 mg DAILY [facility] Administration Aspirin 81 mg 11/24/20 09:00 11/25/20 07:36 Aspirin 81 Mg PO 81 mg DAILY [facility] Administration Atorvastatin Calcium 40 mg 11/24/20 21:00 11/24/20 20:54 Atorvastatin 40 Mg Tab PO 40 mg HS [facility] Administration Carvedilol 6.25 mg 11/23/20 07:30 11/25/20 07:36 Carvedilol 6.25 Mg Tab PO 6.25 mg AC-BID [facility] Administration Clopidogrel Bisulfate 75 mg 11/24/20 09:00 11/25/20 07:36 Clopidogrel 75 Mg Tab PO 75 mg DAILY [facility] Administration Dexamethasone 6 mg 11/23/20 09:00 11/25/20 07:36 Dexamethasone 2 Mg Tab PO 6 mg DAILY [facility] Administration Glimepiride 2 mg 11/22/20 21:00 11/25/20 07:36 Glimepiride 2 Mg Tab PO 2 mg BID [facility] Administration Guaifenesin/Dextromethorphan 10 ml 11/23/20 01:00 Guaifenesin-Dm 100-10mg/5ml 10 Ml Cup PO Q6H PRN Cough HCTZ/Losartan Potassium 2 each 11/23/20 09:00 11/25/20 07:36 Losartan-Hctz 50-12.5 Mg 1 Each Tab PO 2 each DAILY C[facility]STINA Administration Sodium Chloride 1,000 mls @ 75 mls/hr 11/23/20 23:45 11/25/20 02:31 Saline 0.9% IV 75 mls/hr .[id number] [facility] Administration Insulin Aspart 0 unit 11/22/20 21:00 11/25/20 07:37 Insulin Aspart (Novolog) 100 Unit/Ml Vial SQ Not Given ACHS [facility] Protocol Insulin Detemir 5 unit 11/24/20 22:00 11/24/20 21:52 Insulin Detemir (Levemir) 100 Unit/Ml Syr SQ 5 unit HS [facility] Administration Ondansetron HCl 4 mg 11/22/20 21:05 11/22/20 21:14 Ondansetron 4 Mg/2 Ml Vial IVP 4 mg Q6HR PRN Administration Nausea And Vomiting Spironolactone 25 mg 11/23/20 09:00 11/25/20 07:35 Spironolactone 25 Mg Tab PO 25 mg DAILY [facility] Administration Zinc Sulfate 220 mg 11/23/20 09:00 11/25/20 07:35 Zinc Sulfate 220 Mg Cap PO 220 mg DAILY [facility] Administration Objective - Vital Signs Vital signs: Vital Signs Temp 97.6 F 11/25/20 10:00 Pulse 55 L 11/25/20 10:00 Resp 17 11/25/20 10:00 BP 116/60 11/25/20 10:00 Pulse Ox 97 11/25/20 10:00 Intake & Output 11/24/20 11/25/20 11/25/20 18:59 06:59 18:59 Intake Total 600 Balance 600 Intake: Intake, IV Titration 600 Amount Sodium Chloride 0.9% 1, 600 000 ml @ 75 mls/hr IV . [id number] [facility] Rx#:[id number] Other: Voiding Method Bedside Commode # Voids 2 - Exam GENERAL: The patient is alert and oriented x3, not in any acute distress. Well developed, well nourished. HEENT: Pupils are round and equally reacting to light. EOMI. No scleral icterus. No conjunctival pallor. Normocephalic, atraumatic. No pharyngeal erythema. No thyromegaly. CARDIOVASCULAR: S1 and S2 present. No murmurs, rubs, or gallops. -PULMONARY: Chest is clear to auscultation, no bilateral scattered wheezing ABDOMEN: Soft, nontender, nondistended, normoactive bowel sounds. No palpable organomegaly. MUSCULOSKELETAL: No joint swelling or deformity. EXTREMITIES: No cyanosis, clubbing, or pedal edema. -NEUROLOGICAL: Cranial nerves are grossly intact. Left upper extremity weakness especially in hand medical detailist. Sensation is intact - Labs CBC & Chem 7: 11/25/20 06:42 11/25/20 06:42 Labs: Abnormal Lab Results - Last 24 Hours (Table) 11/24/20 11/24/20 11/25/20 Range/Units 16:42 20:39 06:42 RBC 3.82 L (4.10-5.20) X 10*6/uL Hct 36.7 L (37.2-46.3) % BUN (9.0-27.0) mg/dL BUN/Creatinine Ratio (12.00-20.00) Ratio Glucose (70-110) mg/dL POC Glucose (mg/dL) 351 H 230 H (75-99) mg/dL Calcium (8.7-10.3) mg/dL 11/25/20 11/25/20 11/25/20 Range/Units 06:42 07:01 11:46 RBC (4.10-5.20) X 10*6/uL Hct (37.2-46.3) % BUN 32.0 H (9.0-27.0) mg/dL BUN/Creatinine Ratio 35.56 H (12.00-20.00) Ratio Glucose 130 H (70-110) mg/dL POC Glucose (mg/dL) 130 H 195 H (75-99) mg/dL Calcium 8.5 L (8.7-10.3) mg/dL Microbiology - Last 24 Hours (Table) 11/22/20 12:55 Blood Culture - Preliminary Blood No Growth after 48 hours 11/22/20 12:40 Blood Culture - Preliminary Blood No Growth after 48 hours Assessment and Plan Assessment: Acute right parietal lobe stroke with left upper extremity weakness, improving. Secondary to embolic event versus thrombosis secondary to Covid 19 Acute Covid 19 pneumonitis Acute hypoxic respiratory failure secondary to above, improving significantly Acute Covid 19 gastroenteritis, improved Increase inflammatory markers Left breast lesion 1.5 cm, patient is aware with plan for outpatient follow-up with Dr. Mcnulty for biopsy Hypertension Type 2 diabetes mellitus Plan: This is a pleasant 70 years old female who presents with Covid pneumonia. Continue with dexamethasone, vitamin C and zinc. Continue with oxygen as needed. Continue Lovenox. Pulmonary team consult. Neuro consult is appreciated, continue with aspirin and Plavix (for 21 day, patient informed and verbalized understanding ) and statin, follow-up cardiology for ALYSSA and event monitor Follow-up for left breast biopsy with Dr. Mendoza as an outpatient , patient is aware Continue with same treatment. Continue with symptomatic treatment. Resume home medication. Monitor lytes and vitals. DVT and GI prophylaxis. Further recommendations depends on the clinical course of the patient DVT prophylaxis: Continue with mechanical. Also continue with aspirin and Plavix GI Prophylaxis: Pepcid Prognosis is guarded
[2020-11-25 12:57] LABS: Basophils # (A) 0.01 X 10*3/uL (0.00-0.10); Basophils % (A) 0.1 %; Eosinophils # (A) 0.01 X 10*3/uL (0.04-0.35); Eosinophils % (A) 0.1 %; Monocytes # (A) 0.65 X 10*3/uL (0.20-1.00); Monocytes % (A) 7.2 %
--- NOTE | 2020-11-25 14:56 | P.PN ---
Subjective Progress Note Date: 11/25/20 CHIEF COMPLAINT: Left breast lesions HISTORY OF PRESENT ILLNESS: Patient is hospitalized for Covid pneumonia. And has had a stroke. Surgical service is following her as patient's left breast lesions. Patient denies any pain or tenderness of the breasts. Denies any drainage from the progress. Afebrile PHYSICAL EXAM: VITAL SIGNS: Reviewed. GENERAL: Well-developed in no acute distress. HEENT: No sclera icterus. Extraocular movements grossly intact. Moist buccal mucosa. Head is atraumatic, normocephalic. ABDOMEN: Soft. Nondistended. Nontender. NEUROLOGIC: Alert and oriented. Cranial nerves II through XII grossly intact. ASSESSMENT: 1. Two left breast lesions at 1 o'clock and 3 o'clock positions PLAN: -Continue supportive care -Dr. Lee will plan for outpatient biopsy of left breast lesions when patient is medically stable. Physician Computer Tech note has been reviewed by physician. Signing provider agrees with the documented findings, assessment, and plan of care. Objective - Vital Signs Vital signs: Vital Signs Temp 97.4 F L 11/25/20 13:55 Pulse 60 11/25/20 13:55 Resp 17 11/25/20 13:55 BP 133/71 11/25/20 13:55 Pulse Ox 95 11/25/20 13:55 Intake & Output 11/24/20 11/25/20 11/25/20 18:59 06:59 18:59 Intake Total 600 600 Balance 600 600 Intake: IV 600 Sodium Chloride 0.9% 1, 600 000 ml @ 75 mls/hr IV . [id number] [facility] Rx#:[id number] Intake, IV Titration 600 Amount Sodium Chloride 0.9% 1, 600 000 ml @ 75 mls/hr IV . [id number] [facility] Rx#:[id number] Other: Voiding Method Bedside Commode # Voids 2 - Labs CBC & Chem 7: 11/25/20 06:42 11/25/20 06:42 Labs: Abnormal Lab Results - Last 24 Hours (Table) 11/24/20 11/24/20 11/25/20 Range/Units 16:42 20:39 06:42 RBC 3.82 L (4.10-5.20) X 10*6/uL Hct 36.7 L (37.2-46.3) % Immature Gran # 0.05 H (0.00-0.04) X 10*3/uL Eosinophils # 0.01 L (0.04-0.35) X 10*3/uL BUN (9.0-27.0) mg/dL BUN/Creatinine Ratio (12.00-20.00) Ratio Glucose (70-110) mg/dL POC Glucose (mg/dL) 351 H 230 H (75-99) mg/dL Calcium (8.7-10.3) mg/dL 11/25/20 11/25/20 11/25/20 Range/Units 06:42 07:01 11:46 RBC (4.10-5.20) X 10*6/uL Hct (37.2-46.3) % Immature Gran # (0.00-0.04) X 10*3/uL Eosinophils # (0.04-0.35) X 10*3/uL BUN 32.0 H (9.0-27.0) mg/dL BUN/Creatinine Ratio 35.56 H (12.00-20.00) Ratio Glucose 130 H (70-110) mg/dL POC Glucose (mg/dL) 130 H 195 H (75-99) mg/dL Calcium 8.5 L (8.7-10.3) mg/dL Microbiology - Last 24 Hours (Table) 11/22/20 12:55 Blood Culture - Preliminary Blood No Growth after 48 hours 11/22/20 12:40 Blood Culture - Preliminary Blood No Growth after 48 hours
--- NOTE | 2020-11-25 15:34 | P.PN ---
Subjective Progress Note Date: 11/25/20 Principal diagnosis: Dyspnea, cough, hypoxia, pneumonia This is a 70-year-old female, that I'm asked to see because of COVID 19 pneumonia. The patient started having symptoms 10 or 11 days ago. The patient apparently went to some clinic in [address], but was discharged home. It is not clear to me that she was tested at that time. Her symptoms include muscle aches, joint is, cough, shortness of breath, pain in the chest, and diarrhea. Unfortunately, because her symptoms have been present for just a long time, she is really not a candidate for REM, TOCI or CP. She was seen in the emergency room and started on Decadron. The patient should also be on vitamin C, vitamin D3, and zinc. Finally, she should have an albuterol inhaler. Her chest x-ray and CAT scan are consistent with COVID 19 pneumonia. She tells me today, that she feeling a bit better than she was yesterday. Her primary care provider is Dr. Aneesh Davis. Her home medications include albuterol inhaler, Coreg, Lomotil, glimepiride, losartan/hydrochlorothiazide, and Aldactone. She is a lifelong nonsmoker. She doesn't drink or use any illicit drugs. Currently, she is on a couple liters of oxygen. White count is 6.6, hemoglobin 13.4, hematocrit 38.6, and platelet count 161,000. PT INR were normal. D-dimer was 1.12. Sodium 132, potassium 3.5, chlorides 96, CO2 27, anion gap 9, BUN 21, and creatinine 0.58. C-reactive protein was 152.1, LDH 749, ferritin 614, and pro- calcitonin level was 0.14 On 11/25/2019 patient seen in follow-up on medical floor. She is currently on 3 L of oxygen pulse ox is 93%, denies any worsening shortness of breath, she does have mild exertional dyspnea, no cough, patient developed strokelike symptoms last night at around 2300 with left hand and left arm weakness and numbness. CT of the head and angiography CT of the head and neck showed no acute abnormality, showed mild mediastinal lymphadenopathy. Her left arm weakness and numbness have improved, she was not candidate for TPA related to being on Eliquis. Echocardiogram was completed showing preserved LV function with EF of 60-65%, trace to mild aortic regurg, mild to moderate pulmonary hypertension with PA systolic of 45 mmHg, and mild tricuspid regurg. His chest x-ray shows stable patchy bilateral infiltrates. Patient was out of the window for many treatments for COVID 19 pneumonia, including monoclonal antibody, convalescent plasma, Remdesivir, currently just on Decadron 6 mg daily, vitamins, and Levaquin was discontinued, patient is currently on aspirin, Plavix, and Lipitor per neurology. Patient has been stable from pulmonary perspective the last 24 hours without worsening dyspnea or hypoxemia On 11/26/2019 patient seen in follow-up medical floor. 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 Neurology is following, patient reports a bit more strength in the left hand and no numbness. Patient was taken off the Eliquis, she could not take Lovenox or heparin for DVT prophylaxis because of ALLERGIES to porcine products, and she is currently on Lipitor, Plavix and baby aspirin. Objective - Vital Signs Vital signs: Vital Signs Temp 97.4 F L 11/25/20 13:55 Pulse 60 11/25/20 13:55 Resp 17 11/25/20 13:55 BP 133/71 11/25/20 13:55 Pulse Ox 95 11/25/20 13:55 Intake & Output 11/24/20 11/25/20 11/25/20 18:59 06:59 18:59 Intake Total 600 600 Balance 600 600 Intake: IV 600 Sodium Chloride 0.9% 1, 600 000 ml @ 75 mls/hr IV . [id number] [facility] Rx#:[id number] Intake, IV Titration 600 Amount Sodium Chloride 0.9% 1, 600 000 ml @ 75 mls/hr IV . [id number] [facility] Rx#:[id number] Other: Voiding Method Bedside Commode # Voids 2 - Exam GENERAL EXAM: Alert, very pleasant, 70-year-old overweight white female, on 2 L of oxygen with a pulse ox of 95%, comfortable in no apparent distress. HEAD: Normocephalic/atraumatic. EYES: Normal reaction of pupils, equal size. Conjunctiva pink, sclera white. NOSE: Clear with pink turbinates. THROAT: No erythema or exudates. NECK: No masses, no JVD, no thyroid enlargement, no adenopathy. CHEST: No chest wall deformity. Symmetrical expansion. LUNGS: Equal air entry with no crackles, wheeze, rhonchi or dullness. CVS: Regular rate and rhythm, normal S1 and S2, no gallops, no murmurs, no rubs ABDOMEN: Soft, nontender. No hepatosplenomegaly, normal bowel sounds, no guarding or rigidity. EXTREMITIES: No clubbing, no edema, no cyanosis, 2+ pulses and upper and lower extremities. MUSCULOSKELETAL: Muscle strength and tone normal. SPINE: No scoliosis or deformity SKIN: No rashes CENTRAL NERVOUS SYSTEM: Alert and oriented -3. Left arm weakness persists, but improving tone is normal in all 4 extremities. PSYCHIATRIC: Alert and oriented -3. Appropriate affect. Intact judgment and insight. - Labs CBC & Chem 7: 11/25/20 06:42 11/25/20 06:42 Labs: Abnormal Lab Results - Last 24 Hours (Table) 11/24/20 11/24/20 11/25/20 Range/Units 16:42 20:39 06:42 RBC 3.82 L (4.10-5.20) X 10*6/uL Hct 36.7 L (37.2-46.3) % Immature Gran # 0.05 H (0.00-0.04) X 10*3/uL Eosinophils # 0.01 L (0.04-0.35) X 10*3/uL BUN (9.0-27.0) mg/dL BUN/Creatinine Ratio (12.00-20.00) Ratio Glucose (70-110) mg/dL POC Glucose (mg/dL) 351 H 230 H (75-99) mg/dL Calcium (8.7-10.3) mg/dL 11/25/20 11/25/20 11/25/20 Range/Units 06:42 07:01 11:46 RBC (4.10-5.20) X 10*6/uL Hct (37.2-46.3) % Immature Gran # (0.00-0.04) X 10*3/uL Eosinophils # (0.04-0.35) X 10*3/uL BUN 32.0 H (9.0-27.0) mg/dL BUN/Creatinine Ratio 35.56 H (12.00-20.00) Ratio Glucose 130 H (70-110) mg/dL POC Glucose (mg/dL) 130 H 195 H (75-99) mg/dL Calcium 8.5 L (8.7-10.3) mg/dL Microbiology - Last 24 Hours (Table) 11/22/20 12:55 Blood Culture - Preliminary Blood No Growth after 72 hours 11/22/20 12:40 Blood Culture - Preliminary Blood No Growth after 72 hours Assessment and Plan Plan: Assessment: #1. Acute hypoxic respiratory failure secondary to COVID 19 pneumonitis, patient was out of the window for Remdesivir, or convalescent plasma #2. Acute onset left arm and hand weakness, possibility of stroke, brain CT amd CT angiography of the brain did not show acute abnormality, MRI of the brain showed evolving acute infarct in the right parietal lobe #3. Hypertension #4. Diabetes type 2 #5. Left breast lesions at 1:00 and 3:00 positions in the left breast outpatient biopsy is planned when medically stable Plan: No worsening dyspnea or hypoxia, continue weaning FiO2 to keep O2 sat at or above 90%, no cough, no chest discomfort, MRI brain was noted, no worsening neurological symptoms, strength in the left arm is improving, no complaints of numbness, provide SCDs for mechanical DVT prophylaxis at this time. I performed a history & physical examination of the patient and discussed their management with my nurse practitioner, Shahla Beck. I reviewed the nurse pr actitioner's note and agree with the documented findings and plan of care. Lung sounds are positive for diminished breath sounds. The findings and the impression was discussed with the patient. I attest to the documentation by the nurse practitioner. Time with Patient: Less than 30
[2020-11-25 17:13] LABS: Glucose,Whole Blood 348 mg/dL (75-99)
[2020-11-25 20:25] LABS: Glucose,Whole Blood 322 mg/dL (75-99)
[2020-11-25] MEDS: ATORVASTATIN 40 MG TAB PO SCH (20:31)
[2020-11-25] MEDS: INSULIN DETEMIR (LEVEMIR) 100 UNIT/ML SYR SQ SCH (20:31)
[2020-11-26] MEDS: SODIUM CHLORIDE 0.9% 1,000 ML IV SCH (05:09)
[2020-11-26 06:34] LABS: Basophils % (A) 0 %; Eosinophils % (A) 0 %; HCT 39.2 % (34.0-46.0); Lymphocytes # (A) 1.3 k/uL (1.0-4.8); Lymphocytes % (A) 18 %; MCHC 33.2 g/dL (31.0-37.0); MCV 96.6 fL (80.0-100.0); Mean Platelet Volume 8.1; Monocytes # (A) 0.4 k/uL (0-1.0); Monocytes % (A) 6 %; Neutrophils # (A) 5.2 k/uL (1.3-7.7); Neutrophils % (A) 73 %; Platelet Count 237 k/uL (150-450); RBC 4.06 m/uL (3.80-5.40); RDW 12.4 % (11.5-15.5); WBC 7.2 k/uL (3.8-10.6)
[2020-11-26 06:48] LABS: Glucose,Whole Blood 103 mg/dL (75-99)
[2020-11-26] MEDS: INSULIN ASPART (NovoLOG) 100 UNIT/ML VIAL SQ SCH ×2 (07:31→12:43)
[2020-11-26] MEDS: carvediloL 6.25 MG TAB PO SCH (07:35)
[2020-11-26] MEDS: amLODIPine 5 MG TAB PO SCH (07:45)
[2020-11-26] MEDS: SPIRONOLACTONE 25 MG TAB PO SCH (07:45)
[2020-11-26] MEDS: ZINC SULFATE 220 MG CAP PO SCH (07:45)
[2020-11-26] MEDS: dexAMETHasone 2 MG TAB PO SCH (07:45)
[2020-11-26] MEDS: CLOPIDOGREL 75 MG TAB PO SCH (07:45)
[2020-11-26] MEDS: ASCORBIC ACID 500 MG TAB PO SCH (07:45)
[2020-11-26] MEDS: LOSARTAN-HCTZ 50-12.5 MG 1 EACH TAB PO SCH (07:45)
[2020-11-26] MEDS: ASPIRIN 81 MG PO SCH (07:45)
[2020-11-26] MEDS: ALBUTEROL HFA INHALER INHALATION PRN ×3 (08:12→16:12)
--- NOTE | 2020-11-26 09:51 | P.PN ---
Subjective Progress Note Date: 11/26/20 The patient was seen at bedside and she feels she is having more strength over the left hand and arm compared to two days ago. She continues to walk independently. She denies any new neurological problems. Cardiology contacted me yesterday and I was notified that ALYSSA will have hold two weeks from now since patient has COVID-19+. Objective - Vital Signs Vital signs: Vital Signs Temp 97.6 F 11/26/20 05:52 Pulse 51 L 11/26/20 05:52 Resp 16 11/26/20 05:52 BP 157/65 11/26/20 05:52 Pulse Ox 97 11/26/20 05:52 Intake & Output 11/25/20 11/26/20 11/26/20 18:59 06:59 18:59 Intake Total 600 Balance 600 Intake: IV 600 Sodium Chloride 0.9% 1, 600 000 ml @ 75 mls/hr IV . [id number] [facility] Rx#:[id number] Other: Voiding Method Bedside Commode Toilet - Exam GENERAL: The patient is lying in bed and is not in acute distress. NEUROLOGICAL: Higher mental function: The patient is awake, alert, oriented to self, place and time. Patient is following commands. No aphasia and no neglect. Cranial nerves: The pupils are round, equal and reactive to light and accommodation. Visual moncada are full to confrontation throughout. Extraocular movement is intact no nystagmus is noted. Facial sensation is normal to touch throughout. The facial strength is normal throughout. Hearing is normal bilaterally to hand rub. Tongue is midline and moved [id number] without any difficulty. No dysarthria is noted. Shoulder shrug is normal bilaterally. Motor: Gait is normal. The strength is left upper extremity distally is 5-/5. Otherwise 5/5 throughout. Normal tone and bulk. Cerebellum: Normal finger to nose over the right but could not assess left because of weakness. Sensation: Sensation is normal to touch throughout. Reflexes (right/left): 2+ throughout. Plantars are downgoing bilaterally. - Labs CBC & Chem 7: 11/26/20 05:38 11/25/20 06:42 Labs: Abnormal Lab Results - Last 24 Hours (Table) 11/25/20 11/25/20 11/25/20 Range/Units 06:42 06:42 11:46 RBC 3.82 L (4.10-5.20) X 10*6/uL Hct 36.7 L (37.2-46.3) % Immature Gran # 0.05 H (0.00-0.04) X 10*3/uL Eosinophils # 0.01 L (0.04-0.35) X 10*3/uL BUN 32.0 H (9.0-27.0) mg/dL BUN/Creatinine Ratio 35.56 H (12.00-20.00) Ratio Glucose 130 H (70-110) mg/dL POC Glucose (mg/dL) 195 H (75-99) mg/dL Calcium 8.5 L (8.7-10.3) mg/dL 11/25/20 11/25/20 11/26/20 Range/Units 17:11 20:24 06:47 RBC (4.10-5.20) X 10*6/uL Hct (37.2-46.3) % Immature Gran # (0.00-0.04) X 10*3/uL Eosinophils # (0.04-0.35) X 10*3/uL BUN (9.0-27.0) mg/dL BUN/Creatinine Ratio (12.00-20.00) Ratio Glucose (70-110) mg/dL POC Glucose (mg/dL) 348 H 322 H 103 H (75-99) mg/dL Calcium (8.7-10.3) mg/dL Microbiology - Last 24 Hours (Table) 11/22/20 12:55 Blood Culture - Preliminary Blood No Growth after 72 hours 11/22/20 12:40 Blood Culture - Preliminary Blood No Growth after 72 hours Assessment and Plan Assessment: This is a 70-year-old woman with multiple medical problems who presented to the emergency department on 11/22/2020 for coughing and dyspnea. She was found to have the Covid 19 positive pneumonia. On the 11/23/2020 patient noticed the left upper extremity weakness and numbness and she had NIH of 5. She did not receive TPA since she is on Eliquis. Acute ischemic stroke (right parietal and right thalamus with Left upper extremity weakness predominantly in the left hand and that transient sensory loss in the left upper extremity). Etiology unknown. Possibly Embolic vs since there are increase risk with stroke from COVID 19--symptoms improving Acute hypoxemic respiratory failure secondary due to Covid 19 pneumonia Acute Covid 19 gastroenteritis Poorly controlled diabetes mellitus (HbA1c: 8.7) Hypertriglyceridemia Left breast lesion about 1.5 cm Hypertension Plan: CT of the head on 11/23/2020 and reported as mild atrophy. No acute intracranial abnormality. CT angiography of the head and neck was reported as negative for both. It shows mild mediastinal lymphadenopathy. MRI of the brain was done yesterday and that it's reported as evolving acute infarct in the right parietal lobe posterior watershed distribution. There is mild diffuse cerebral atrophy and minimal chronic small vessel ischemic change. Abnormal fluid signal right mastoid air cell, correlate clinically for right sided acute mastoiditis. I personally reviewed the MRI of the brain and I do agree that there is acute right parietal ischemic stroke as well as a right traumatic ischemic stroke. I don't believe that this is watershed over the right parietal. Continue aspirin 81 mg and Plavix 75 mg a daily for 21 days then after that to discontinue Plavix 75mg (stop on 12/15/20) and to indefinitely be on aspirin 81 mg daily. Continue Lipitor 40 mg for secondary stroke prophylaxis. 2-D echo was reported as borderline concentric left ventricular hypertrophy. Ejection fraction of 60-65%. Normal left atrial size by volume. Lipid panel: Triglycerides 162, cholestrol 154, LDL 89, HDL 32 HbA1c: 8.7 PT and OT are consulted. Continue every 4 neuro checks Continue cardiac monitoring Consulted cardiology team for ALYSSA but per cardiology will be done two weeks from now since patient has COVID19. Ordered event monitor and possibly loop recorder down the line. Well Pull[place] Head on board for the patient covert 19 and pneumonia. Upon discharge the patient is to follow up with a neurologist as outpatient within 1-2 weeks. She will also need to follow-up with special education professor as outpatient. We'll defer the rest of the medical management to the primary team. Regarding the DVT prophylaxis I notified that the primary team that I would recommend SCDs (since patient is allergic to heparin). No further work-up is needed. Plan was discussed with the patient and her nurse. Florentin Cole M.D. Neuro-hospitalist Time with Patient: Less than 30
[2020-11-26] MEDS: GLIMEPIRIDE 2 MG TAB PO SCH (11:09)
[2020-11-26 11:46] LABS: Glucose,Whole Blood 198 mg/dL (75-99)
--- NOTE | 2020-11-26 12:56 | P.PN ---
Subjective Progress Note Date: 11/26/20 CHIEF COMPLAINT: Left breast lesions HISTORY OF PRESENT ILLNESS: Patient is hospitalized for Covid pneumonia. And has had a stroke. Surgical service is following her as patient's left breast lesions. Patient denies any pain or tenderness of the breasts. Denies any discharge or drainage from the breast. Afebrile PHYSICAL EXAM: VITAL SIGNS: Reviewed. GENERAL: Well-developed in no acute distress. HEENT: No sclera icterus. Extraocular movements grossly intact. Moist buccal mucosa. Head is atraumatic, normocephalic. ABDOMEN: Soft. Nondistended. Nontender. NEUROLOGIC: Alert and oriented. Cranial nerves II through XII grossly intact. ASSESSMENT: 1. Two left breast lesions at 1 o'clock and 3 o'clock positions PLAN: -Continue supportive care -Dr. Lee will plan for outpatient biopsy of left breast lesions when patient is medically stable. Physician Physical Education Department Chair note has been reviewed by physician. Signing provider agrees with the documented findings, assessment, and plan of care. Objective - Vital Signs Vital signs: Vital Signs Temp 97.7 F 11/26/20 10:02 Pulse 58 L 11/26/20 10:02 Resp 18 11/26/20 10:02 BP 124/67 11/26/20 10:02 Pulse Ox 91 L 11/26/20 10:02 Intake & Output 11/25/20 11/26/20 11/26/20 18:59 06:59 18:59 Intake Total 600 Balance 600 Intake: IV 600 Sodium Chloride 0.9% 1, 600 000 ml @ 75 mls/hr IV . [id number] [facility] Rx#:[id number] Other: Voiding Method Bedside Commode Toilet - Labs CBC & Chem 7: 11/26/20 05:38 11/25/20 06:42 Labs: Abnormal Lab Results - Last 24 Hours (Table) 11/25/20 11/25/20 11/25/20 Range/Units 06:42 17:11 20:24 Immature Gran # 0.05 H (0.00-0.04) X 10*3/uL Eosinophils # 0.01 L (0.04-0.35) X 10*3/uL POC Glucose (mg/dL) 348 H 322 H (75-99) mg/dL 11/26/20 11/26/20 Range/Units 06:47 11:45 Immature Gran # (0.00-0.04) X 10*3/uL Eosinophils # (0.04-0.35) X 10*3/uL POC Glucose (mg/dL) 103 H 198 H (75-99) mg/dL Microbiology - Last 24 Hours (Table) 11/22/20 12:55 Blood Culture - Preliminary Blood No Growth after 72 hours 11/22/20 12:40 Blood Culture - Preliminary Blood No Growth after 72 hours
[2020-11-26 14:19] VITALS: BP 155/72; PULSE 77; RESP 19; TEMP 97.6
--- NOTE | 2020-11-26 14:47 | P.CRDCN ---
History of Present Illness History of present illness: HISTORY OF PRESENTING ILLNESS This is a pleasant 70-year-old female past medical history significant for type 2 diabetes, hypertension, She follows with Dr. Recio cardiolgist at [facility]. We have been asked to see in consultation for possible ALYSSA procedure. Patient presented to the emergency department on 11/22/2020 for cough and dyspnea. Patient received a recent COVID test and outside facility which was positive. on 11/23/20 patient started to exhibit left hand and arm weakness and numbness. Code stroke was activated. MRI brain revealed an acute infarct right parietal lobe. Neurology and Pulmonary have been following patient. Patient is seen and examined at bedside, sitting up in chair. Alert and oriented x 3. No apparent distress. Stating she may be discharged home today. Denies chest pain, palpitations, shortness of breath, lower extremity edema, dizziness or lightheadedness. Denies history of AR, previous stroke, or irregular rhythm. Family history - Father had a 3v CABG in his 60s. Laboratory data reviewed, WBC 7.2, hemoglobin 13, platelets 237. Vital signs Blood pressure 124/67, heart rate 77 afebrile and maintaining oxygen saturation on room air.EKG reveals sinus rhythm HR 71, QTc 480, no significant ST T wave abnormalities. Telemetry tracings indicate sinus mechanism. Chest xray patchy mid and lower lung airspace disease- may reflect COVID pneumonia 2D echo - EF 60-65% mild AR, mild TR, mild to moderate pulmonary hypertension. Current cardiac medications include sprionolaction 25mg daily, Losartan/Hctz- 1 tab daily, carvedilol 6.25mg BID. REVIEW OF SYSTEMS At the time of my exam: CONSTITUTIONAL: Denies fever or chills. CARDIOVASCULAR: Denies chest pain, shortness of breath, orthopnea, PND or palpitations. RESPIRATORY: Denies cough. GASTROINTESTINAL: Denies abdominal pain, diarrhea, constipation, nausea or vomiting. MUSCULOSKELETAL: Denies myalgias. NEUROLOGIC: Denies numbness, tingling, headacbe or weakness. ENDOCRINE: Denies fatigue, weight change, polydipsia or polyurina. GENITOURINARY: Denies burning, hematuria or urgency with micturation. HEMATOLOGIC: Denies history of anemia or bleeding. PHYSICAL EXAMINATION CONSTITUTIONAL: No apparent distress. HEENT: Head is normocephalic. Pupils are equal, round. Sclerae anicteric. Mucous membranes of the mouth are moist. No JVD. No carotid bruit. CHEST EXAMINATION: Lungs are clear to auscultation. No chest wall tenderness is noted on palpation or with deep breathing. HEART EXAMINATION: Regular rate and rhythm. S1, S2 heard. No murmurs, gallops or rub. ABDOMEN: Soft, nontender. Positive bowel sounds. EXTREMITIES: 2+ peripheral pulses, no lower extremity edema and no calf tenderness. NEUROLOGIC EXAMINATION: Patient is awake, alert and oriented x3. Left upper extremity weakness. ASSESSMENT -History of Hypertension -Type 2 Diabetes -Acute ischemic stroke- infarct right parietal lobe- Etiology is unknown. Per neuro possibly embolic since increased risk with stroke from COVID-19 -Hyperlipidemia PLAN -Due to active COVID-19 infection, ALYSSA are not being performed by cardiology inpatient. -Discussed with patient and an Event monitor will be placed prior to discharged. Event monitor will be on for 30 days and report to be sent to patient's cardiolist Dr. Recio. Patient will follow up with her plumbing assembler, Dr. Recio in regards to the ALYSSA procedure. Nurse Practitioner note has been reviewed, I agree with a documented findings and plan of care. Patient was seen and examined. Past Medical History Past Medical History: Hypertension History of Any Multi-Drug Resistant Organisms: None Reported Past Surgical History: Hysterectomy Past Anesthesia/Blood Transfusion Reactions: No Reported Reaction Past Psychological History: No Psychological Hx Reported Smoking Status: Never smoker Past Alcohol Use History: None Reported Past Drug Use History: None Reported - Past Family History Mother History Unknown: Yes Medications and Allergies Home Medications Medication Instructions Recorded Confirmed Type Albuterol Inhaler [Ventolin Hfa 2 puff INHALATION RT-QID PRN 11/22/20 11/22/20 History Inhaler] Carvedilol [Coreg] 6.25 mg PO AC-BID 11/22/20 11/22/20 History Diphenoxylate HCl/Atropine 2 tab PO QID PRN 11/22/20 11/22/20 History [Lomotil 2.5-0.025 mg Tablet] Glimepiride [Amaryl] 2 mg PO BID 11/22/20 11/22/20 History Losartan/Hydrochlorothiazide 1 tab PO DAILY 11/22/20 11/22/20 History [Losartan-Hctz 100-25 mg Tab] Spironolactone 25 mg PO DAILY 11/22/20 11/22/20 History Allergies Allergy/AdvReac Type Severity Reaction Status Date / Time Milk Containing Products AdvReac Nausea & Verified 11/22/20 15:11 [Dairy] Vomiting & Diarrhea Pork/Porcine Containing AdvReac Diarrhea Verified 11/23/20 17:46 Products Physical Exam Vitals: Vital Signs Temp Pulse Resp BP Pulse Ox 11/26/20 10:02 97.7 F 58 L 18 124/67 91 L 11/26/20 05:52 97.6 F 51 L 16 157/65 97 11/26/20 02:00 98.0 F 52 L 16 148/74 97 11/25/20 21:27 98.3 F 55 L 17 148/74 97 11/25/20 18:00 98.4 F 60 17 149/75 96 11/25/20 13:55 97.4 F L 60 17 133/71 95 Intake and Output 11/25/20 11/26/20 11/26/20 22:59 06:59 14:59 Other: Voiding Method Bedside Commode Toilet Results 11/26/20 05:38 11/25/20 06:42 CBC 11/25/20 11/26/20 Range/Units 06:42 05:38 WBC 9.02 7.2 (4.50-10.00) X 10*3/uL RBC 3.82 L 4.06 (4.10-5.20) X 10*6/uL Hgb 12.1 13.0 (12.0-15.0) g/dL Hct 36.7 L 39.2 (37.2-46.3) % Plt Count 271 237 (140-440) X 10*3/uL Comprehensive Metabolic Panel 11/25/20 Range/Units 06:42 Sodium 142 (135-145) mmol/L Potassium 3.6 (3.5-5.5) mmol/L Chloride 106 (96-109) mmol/L Carbon Dioxide 27.6 (21.6-31.8) mmol/L BUN 32.0 H (9.0-27.0) mg/dL Creatinine 0.9 (0.6-1.5) mg/dL Glucose 130 H (70-110) mg/dL Calcium 8.5 L (8.7-10.3) mg/dL Current Medications Generic Name Dose Route Start Last Admin Trade Name Freq PRN Reason Stop Dose Admin Albuterol Sulfate 2 puff 11/22/20 19:20 11/26/20 08:12 Albuterol Hfa Inhaler INHALATION 2 puff RT-QID PRN Administration Shortness Of Breath Amlodipine Besylate 5 mg 11/23/20 09:00 11/26/20 07:45 Amlodipine 5 Mg Tab PO 5 mg DAILY [facility] Administration Ascorbic Acid 1,000 mg 11/23/20 09:00 11/26/20 07:45 Ascorbic Acid 500 Mg Tab PO 1,000 mg DAILY [facility] Administration Aspirin 81 mg 11/24/20 09:00 11/26/20 07:45 Aspirin 81 Mg PO 81 mg DAILY [facility] Administration Atorvastatin Calcium 40 mg 11/24/20 21:00 11/25/20 20:31 Atorvastatin 40 Mg Tab PO 40 mg HS [facility] Administration Carvedilol 6.25 mg 11/23/20 07:30 11/26/20 07:35 Carvedilol 6.25 Mg Tab PO Not Given AC-BID [facility] Clopidogrel Bisulfate 75 mg 11/24/20 09:00 11/26/20 07:45 Clopidogrel 75 Mg Tab PO 75 mg DAILY [facility] Administration Dexamethasone 6 mg 11/23/20 09:00 11/26/20 07:45 Dexamethasone 2 Mg Tab PO 6 mg DAILY [facility] Administration Glimepiride 2 mg 11/22/20 21:00 11/25/20 20:31 Glimepiride 2 Mg Tab PO 2 mg BID [facility] Administration Guaifenesin/Dextromethorphan 10 ml 11/23/20 01:00 Guaifenesin-Dm 100-10mg/5ml 10 Ml Cup PO Q6H PRN Cough HCTZ/Losartan Potassium 2 each 11/23/20 09:00 11/26/20 07:45 Losartan-Hctz 50-12.5 Mg 1 Each Tab PO 2 each DAILY [facility] Administration Sodium Chloride 1,000 mls @ 75 mls/hr 11/23/20 23:45 11/26/20 05:09 Saline 0.9% IV Not Given .[id number] [facility] Insulin Aspart 0 unit 11/22/20 21:00 11/26/20 07:31 Insulin Aspart (Novolog) 100 Unit/Ml Vial SQ Not Given ACHS [facility] Protocol Insulin Detemir 5 unit 11/24/20 22:00 11/25/20 20:31 Insulin Detemir (Levemir) 100 Unit/Ml Syr SQ 5 unit HS [facility] Administration Ondansetron HCl 4 mg 11/22/20 21:05 11/22/20 21:14 Ondansetron 4 Mg/2 Ml Vial IVP 4 mg Q6HR PRN Administration Nausea And Vomiting Spironolactone 25 mg 11/23/20 09:00 11/26/20 07:45 Spironolactone 25 Mg Tab PO 25 mg DAILY [facility] Administration Zinc Sulfate 220 mg 11/23/20 09:00 11/26/20 07:45 Zinc Sulfate 220 Mg Cap PO 220 mg DAILY [facility] Administration Intake and Output 11/25/20 11/26/20 11/26/20 22:59 06:59 14:59 Other: Voiding Method Bedside Commode Toilet 11/26/20 05:38 11/25/20 06:42
--- NOTE | 2020-11-26 17:11 | P.PN ---
Subjective Progress Note Date: 11/26/20 Principal diagnosis: Dyspnea, cough, hypoxia, pneumonia This is a 70-year-old female, that I'm asked to see because of COVID 19 pneumonia. The patient started having symptoms 10 or 11 days ago. The patient apparently went to some clinic in [place], but was discharged home. It is not clear to me that she was tested at that time. Her symptoms include muscle aches, joint is, cough, shortness of breath, pain in the chest, and diarrhea. Unfortunately, because her symptoms have been present for just a long time, she is really not a candidate for REM, TOCI or CP. She was seen in the emergency room and started on Decadron. The patient should also be on vitamin C, vitamin D3, and zinc. Finally, she should have an albuterol inhaler. Her chest x-ray and CAT scan are consistent with COVID 19 pneumonia. She tells me today, that she feeling a bit better than she was yesterday. Her primary care provider is Dr. Aneesh Davis. Her home medications include albuterol inhaler, Coreg, Lomotil, glimepiride, losartan/hydrochlorothiazide, and Aldactone. She is a lifelong nonsmoker. She doesn't drink or use any illicit drugs. Currently, she is on a couple liters of oxygen. White count is 6.6, hemoglobin 13.4, hematocrit 38.6, and platelet count 161,000. PT INR were normal. D-dimer was 1.12. Sodium 132, potassium 3.5, chlorides 96, CO2 27, anion gap 9, BUN 21, and creatinine 0.58. C-reactive protein was 152.1, LDH 749, ferritin 614, and pro- calcitonin level was 0.14 On 11/25/2019 patient seen in follow-up on medical floor. She is currently on 3 L of oxygen pulse ox is 93%, denies any worsening shortness of breath, she does have mild exertional dyspnea, no cough, patient developed strokelike symptoms last night at around 2300 with left hand and left arm weakness and numbness. CT of the head and angiography CT of the head and neck showed no acute abnormality, showed mild mediastinal lymphadenopathy. Her left arm weakness and numbness have improved, she was not candidate for TPA related to being on Eliquis. Echocardiogram was completed showing preserved LV function with EF of 60-65%, trace to mild aortic regurg, mild to moderate pulmonary hypertension with PA systolic of 45 mmHg, and mild tricuspid regurg. His chest x-ray shows stable patchy bilateral infiltrates. Patient was out of the window for many treatments for COVID 19 pneumonia, including monoclonal antibody, convalescent plasma, Remdesivir, currently just on Decadron 6 mg daily, vitamins, and Levaquin was discontinued, patient is currently on aspirin, Plavix, and Lipitor per neurology. Patient has been stable from pulmonary perspective the last 24 hours without worsening dyspnea or hypoxemia On 11/25/2020 patient seen in follow-up medical floor. 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 Neurology is following, patient reports a bit more strength in the left hand and no numbness. Patient was taken off the Eliquis, she could not take Lovenox or heparin for DVT prophylaxis because of ALLERGIES to porcine products, and she is currently on Lipitor, Plavix and baby aspirin. On 11/26/2020 patient seen in follow-up medical floor, she isn't liters of oxygen pulse ox is ranging from 91-97%, he sitting up in a chair, neurologically she is improving, her left arm strength is improving, denies any numbness, she denies any worsening shortness of breath, she is breathing comfortably, she is in sinus mechanism, she is being followed by neurology, general surgery and cardiology, currently discharge is pending Objective - Vital Signs Vital signs: Vital Signs Temp 97.6 F 11/26/20 14:00 Pulse 77 11/26/20 14:00 Resp 19 11/26/20 14:00 BP 155/72 11/26/20 14:00 Pulse Ox 99 11/26/20 14:00 Intake & Output 11/25/20 11/26/20 11/26/20 18:59 06:59 18:59 Intake Total 600 Balance 600 Intake: IV 600 Sodium Chloride 0.9% 1, 600 000 ml @ 75 mls/hr IV . [id number] [facility] Rx#:[id number] Other: Voiding Method Bedside Commode Toilet - Exam GENERAL EXAM: Alert, very pleasant, 70-year-old overweight white female, on 2 L of oxygen with a pulse ox of 99%, comfortable in no apparent distress. HEAD: Normocephalic/atraumatic. EYES: Normal reaction of pupils, equal size. Conjunctiva pink, sclera white. NOSE: Clear with pink turbinates. THROAT: No erythema or exudates. NECK: No masses, no JVD, no thyroid enlargement, no adenopathy. CHEST: No chest wall deformity. Symmetrical expansion. LUNGS: Equal air entry with no crackles, wheeze, rhonchi or dullness. CVS: Regular rate and rhythm, normal S1 and S2, no gallops, no murmurs, no rubs ABDOMEN: Soft, nontender. No hepatosplenomegaly, normal bowel sounds, no guarding or rigidity. EXTREMITIES: No clubbing, no edema, no cyanosis, 2+ pulses and upper and lower extremities. MUSCULOSKELETAL: Muscle strength and tone normal. SPINE: No scoliosis or deformity SKIN: No rashes CENTRAL NERVOUS SYSTEM: Alert and oriented -3. Left arm weakness persists, but improving tone is normal in all 4 extremities. PSYCHIATRIC: Alert and oriented -3. Appropriate affect. Intact judgment and insight. - Labs CBC & Chem 7: 11/26/20 05:38 11/25/20 06:42 Labs: Abnormal Lab Results - Last 24 Hours (Table) 11/25/20 11/25/20 11/26/20 Range/Units 17:11 20:24 06:47 POC Glucose (mg/dL) 348 H 322 H 103 H (75-99) mg/dL 11/26/20 Range/Units 11:45 POC Glucose (mg/dL) 198 H (75-99) mg/dL Microbiology - Last 24 Hours (Table) 11/22/20 12:55 Blood Culture - Preliminary Blood No Growth after 96 hours 11/22/20 12:40 Blood Culture - Preliminary Blood No Growth after 96 hours Assessment and Plan Plan: Assessment: #1. Acute hypoxic respiratory failure secondary to COVID 19 pneumonitis, patient was out of the window for Remdesivir, or convalescent plasma #2. Acute onset left arm and hand weakness, possibility of stroke, brain CT amd CT angiography of the brain did not show acute abnormality, MRI of the brain showed evolving acute infarct in the right parietal lobe #3. Hypertension #4. Diabetes type 2 #5. Left breast lesions at 1:00 and 3:00 positions in the left breast outpatient biopsy is planned when medically stable Plan: Patient has remained stable from pulmonary perspective, no worsening dyspnea or hypoxia, she is breathing comfortably, from pulmonary perspective she is cleared for discharge if cleared by neurology, cardiology and general surgery. Outpatie nt follow-up is recommended with Dr. Cole in the office in 2 weeks. Patient is being set up with outpatient clinical research monitor and ALYSSA. I performed a history & physical examination of the patient and discussed their management with my nurse practitioner, Shahla Beck. I reviewed the nurse practitioner's note and agree with the documented findings and plan of care. Lung sounds are positive for diminished breath sounds. The findings and the impression was discussed with the patient. I attest to the documentation by the nurse practitioner. Time with Patient: Less than 30
--- NOTE | 2020-11-30 12:48 | CDI ---
Documentation Clarification Form Date: 11/26/20 From: Selene Jerez Phone: Admit Date: 11/22/2020 03:10:00 PM Patient Name: Suzanne Kellogg Visit Number: [id number] Discharge Date: 11/26/2020 05:29:00 PM ATTENTION: The Clinical Documentation Specialists (CDI) and [facility] Coding Staff appreciate your assistance in clarifying documentation. Please respond to the clarification below the line at the bottom and electronically sign. The CDI & [facility] Coding staff will review the response and follow-up if needed. Please note: Queries are made part of the Legal Health Record. If you have any questions, please contact the author of this message via ITS. Dr. Janie Davila, The patient has poorly controlled Type II diabetes, as indicated on progress notes 11/25 & 11/26. POC Glucose: 366, 240, 244, 292, 306, 171, 167, 198, 351, 230, 130, 195, 348, 322, 103, 198 Glucose: 221, 159, 130 A1c: 8.7 Treatment: blood glucose monitoring ACHS, consistent carbohydrate diet, Amaryl 2 mg PO BID, NovoLOG per protocol UNIT SQ ACHS, Levemir 5 units SQ HS Per [facility] 2016 - query the provider for clarification whether the patient has hyperglycemia or hypoglycemia so that the appropriate code may be reported - uncontrolled diabetes indicates that the patient's blood sugar is not at an acceptable level, because it is either too high or too low. In order to capture the severity of Illness and necessary documentation specificity, please clarify if Type 2 uncontrolled diabetes is: Hyperglycemia Other, please specify Unable to Determine MTDD
--- NOTE | 2020-12-01 12:18 | CDI ---
HYPERGLYCEMIA Documentation Clarification Form Date: 11/30/2020 12:48:00 PM From: Selene Jerez Phone: Admit Date: 11/22/2020 03:10:00 PM Patient Name: Suzanne Kellogg Visit Number: [id number] Discharge Date: 11/26/2020 05:29:00 PM ATTENTION: The Clinical Documentation Specialists (CDI) and [facility] Coding Staff appreciate your assistance in clarifying documentation. Please respond to the clarification below the line at the bottom and electronically sign. The CDI & [facility] Coding staff will review the response and follow-up if needed. Please note: Queries are made part of the Legal Health Record. If you have any questions, please contact the author of this message via ITS. Dr. Janie Davila, The patient has poorly controlled Type II diabetes, as indicated on progress notes 11/25 & 11/26. POC Glucose: 366, 240, 244, 292, 306, 171, 167, 198, 351, 230, 130, 195, 348, 322, 103, 198 Glucose: 221, 159, 130 A1c: 8.7 Treatment: blood glucose monitoring ACHS, consistent carbohydrate diet, Amaryl 2 mg PO BID, NovoLOG per protocol UNIT SQ ACHS, Levemir 5 units SQ HS Per [facility] 2016 - query the provider for clarification whether the patient has hyperglycemia or hypoglycemia so that the appropriate code may be reported - uncontrolled diabetes indicates that the patient's blood sugar is not at an acceptable level, because it is either too high or too low. In order to capture the severity of Illness and necessary documentation specificity, please clarify if Type 2 uncontrolled diabetes is: Hyperglycemia Other, please specify Unable to Determine MTDD
== END 2020-11-26 17:29 | disposition home health service (06) | DRG 177 ==
LOC: EC 11:42 → 4SSUR 15:10
PROVIDERS: ADMIT Internal Medicine; ATTEND Internal Medicine
DX: U07.1 COVID-19 (principal); J12.82 Pneumonia due to coronavirus disease 2019; J96.01 Acute respiratory failure with hypoxia; I63.89 Other cerebral infarction; A08.39 Other viral enteritis; H70.001 Acute mastoiditis without complications, right ear; E11.65 Type 2 diabetes mellitus with hyperglycemia; G83.24 Monoplegia of upper limb affecting left nondominant side; I10 Essential (primary) hypertension; N64.9 Disorder of breast, unspecified; E78.5 Hyperlipidemia, unspecified; E78.1 Pure hyperglyceridemia; R59.0 Localized enlarged lymph nodes; R29.705 NIHSS score 5; Z79.84 Long term (current) use of oral hypoglycemic drugs; Z79.899 Other long term (current) drug therapy; Z90.710 Acquired absence of both cervix and uterus; Z87.42 Personal history of other diseases of the female genital tract; Z98.890 Other specified postprocedural states; Z91.011 Allergy to milk products; Z88.8 Allergy status to other drugs, medicaments and biological substances
CPT/HCPCS: 36415; 70450; 70496; 70498; 70551; 71045; 71275; 80048; 80053; 80061; 82728; 83036; 83605; 83615; 83735; 84145; 85025; 85379; 85610; 85730; 86140; 87040; 93005; 93270; 93306; 94640; 94760; 99291

== ENCOUNTER → 2020-12-13 | Outpatient (CLI) | payer MEDICARE ==
--- NOTE | 2020-12-13 11:23 | MM ---
Reason for exam: clinical finding. Last mammogram was performed 4 years and 11 months ago. History: Patient is postmenopausal and has history of endometrial cancer at age 55. Family history of breast cancer in mother at age 50, premenopausal breast cancer in sister at age 40, premenopausal breast cancer in sister at age 44, and breast cancer in sister. Took hormonal contraceptives for 3 years. Physical Findings: Nurse did not find any significant physical abnormalities on exam. MG Diagnostic Mammo w CAD CHELLE Bilateral CC and MLO view(s) were taken. Prior study comparison: January 07, 2016, bilateral MG screening mammo w CAD. December 01, 2014, bilateral MG screening mammo w CAD. There are scattered fibroglandular densities. New 1.5cm irregular mass posterior 2 o'clock left breast. No other solid or cystic lesion. Ultrasound already performed. These results were verbally communicated with the patient and result sheet given to the patient on 12/13/20. ASSESSMENT: Highly suggestive of malignancy, BI-RAD 5 RECOMMENDATION: Ultrasound core biopsy of the left breast. Called Dr. Lee with mammographic findings. Biopsy scheduled for 12/17/20 at 10:30. PRELIMINARY REPORT CALLED AND FAXED TO DR. LEE ON 12/13/20.
== END | disposition home or self-care (01) ==
LOC: RADMAMWWP 09:08
PROVIDERS: ATTEND Surgery
DX: Z78.0 Asymptomatic menopausal state (principal)
CPT/HCPCS: 77066

== ENCOUNTER → 2021-01-06 | Day surgery (SDC) | payer MEDICARE ==
--- NOTE | 2021-01-06 11:27 | USB ---
EXAMINATION TYPE: US biopsy breast VAD LT DATE OF EXAM: 01/06/2021 CLINICAL HISTORY: N63 mass. TECHNIQUE: Ultrasound guided core biopsy of right breast. COMPARISON: 11/23/2020 FINDINGS: The procedure of ultrasound guided core biopsy was explained to the patient. Benefits, alt ernatives, and risks were discussed. An informed consent was then obtained. The patient was placed in supine positioning for imaging and for the procedure. The overlying skin w as prepped and draped in usual sterile fashion. Lidocaine buffered with bicarbonate was used as anes thetic into the skin and subcutaneous tissue up to area of concern in the left breast. A pattie was ma de with surgical scalpel. Under ultrasound guidance, a 12-gauge vacuum assisted biopsy gun device was used to obtain 7 core matt ples. Following this, a biopsy clip was left in lesion. The patient tolerated the procedure well without any immediate complication. The patient was kept in the radiology department for short stay after the procedure and then discharged home in stable condi tion. IMPRESSION: Successful, uncomplicated ultrasound guided core biopsy of area of concern in the left br east, full pathology results to follow.
[2021-01-06 11:32] VITALS: BP 104/68; PULSE 65; RESP 16; TEMP 98.2
--- NOTE | 2021-01-06 11:44 | MM ---
Reason for exam: additional evaluation requested from abnormal screening. Last mammogram was performed 1 month ago. History: Patient is postmenopausal and has history of endometrial cancer at age 55. Family history of breast cancer in mother at age 50, premenopausal breast cancer in sister at age 40, premenopausal breast cancer in sister at age 44, and breast cancer in sister. Took hormonal contraceptives for 3 years. MG Diagnostic Mammo LT Wo CAD CC, LM, and XCCL view(s) were taken of the left breast. Prior study comparison: December 13, 2020, bilateral MG diagnostic mammo w CAD CHELLE. January 07, 2016, bilateral MG screening mammo w CAD. ASSESSMENT: Post procedure mammogram for marker placement RECOMMENDATION: Ultrasound of the left breast in 6 months. PENDING PATHOLOGY RESULTS.
== END ==
LOC: EDSTATUS 12-17 10:30 → RADUSWWP 09:44
PROVIDERS: ATTEND Surgery
DX: C50.912 Malignant neoplasm of unspecified site of left female breast (principal)
CPT/HCPCS: 88305; 88342; 88341; 77065; 19083; A4648; J2001

== ENCOUNTER → 2021-07-27 | Outpatient (CLI) | payer MEDICARE ==
--- NOTE | 2021-07-27 13:14 | US ---
EXAMINATION TYPE: US venous doppler duplex LE DATE OF EXAM: 07/27/2021 12:53 PM COMPARISON: NONE CLINICAL HISTORY: R22.41, R22.42 bilateral lower swelling. Bilateral feet pain and swelling x couple weeks SIDE PERFORMED: Bilateral TECHNIQUE: The lower extremity deep venous system is examined utilizing real time linear array sonog therese with graded compression, doppler sonography and color-flow sonography. VESSELS IMAGED: Common Femoral Vein Deep Femoral Vein Greater Saphenous Vein * Femoral Vein Popliteal Vein Small Saphenous Vein * Proximal Calf Veins (* superficial vessels) Right Leg: Appears negative for DVT Left Leg: Appears negative for DVT Grayscale, color doppler, spectral doppler imaging performed of the deep veins of the bilateral lower extremities. There is normal flow, compressibility, vascular waveforms. IMPRESSION: No ultrasound evidence for acute DVT in either lower extremity.
== END | disposition home or self-care (01) ==
LOC: RADUSWWP 11:59
PROVIDERS: ATTEND Internal Medicine Hematology & Oncology
DX: R22.42 Localized swelling, mass and lump, left lower limb (principal); R22.41 Localized swelling, mass and lump, right lower limb
CPT/HCPCS: 93970

== ENCOUNTER → 2021-09-12 | Outpatient (CLI) | payer MEDICARE ==
--- NOTE | 2021-09-12 15:22 | XR ---
EXAMINATION TYPE: XR chest 2V DATE OF EXAM: 09/12/2021 COMPARISON: Chest x-ray 11/24/2020 HISTORY: Z713, Z148, [id number], [id number] TECHNIQUE: Frontal and lateral views of the chest are obtained. FINDINGS: There is no focal air space opacity, pleural effusion, or pneumothorax seen. The cardiac silhouette size is within normal limits. The osseous structures are intact, there is thoracic spond ylosis. Right hemidiaphragm is slightly elevated as on prior. Prominent lung biopsy could be indicati ve of underlying COPD. IMPRESSION: No acute cardiopulmonary process. There is improvement in aeration as compared to prior exam.
== END | disposition home or self-care (01) ==
LOC: RADXRMAIN 14:32
PROVIDERS: ATTEND Registered Nurse Oncology
DX: C50.412 Malignant neoplasm of upper-outer quadrant of left female breast (principal); C54.9 Malignant neoplasm of corpus uteri, unspecified; Z71.3 Dietary counseling and surveillance; Z14.8 Genetic carrier of other disease
CPT/HCPCS: 71046

== ENCOUNTER → 2023-12-18 | Outpatient (CLI) | payer MEDICARE ==
--- NOTE | 2023-12-19 14:33 | BD ---
EXAMINATION TYPE: Axial Bone Density DATE OF EXAM: 12/18/2023 CLINICAL HISTORY: 73 years old Female. ICD-10 CODE: C50.412 BREAST CA Height: 65.5 Weight: 247 FRAX RISK QUESTIONS: Alcohol (3 or more units per day): no Family History (Parent hip fracture): no Glucocorticoids (More than 3mos): no (Ex: prednisone, prednisolone, methylprednisolone, dexamethasone, and hydrocortisone). History of Fracture in Adulthood: no Secondary Osteoporosis: 1. Type 1 Diabetes: no 2. Hyperthyroidism: no 3. Menopause before 45: no 4. Malnutrition: no 5. Chronic liver disease: no Rheumatoid Arthritis: no Current Tobacco Use: no RISK FACTORS HISTORY OF: Hip Fracture (Right/Left): no Spine Fracture: no History of Wrist Fracture: no Surgery to Spine/Hip(right/left)/Wrist (right/left): no MEDICATIONS: Thyroid Medications: no Osteoporosis Medications: no EXAM MEASUREMENTS: Bone mineral densitometry was performed using the PerBlue System. Bone mineral density as measured about the Lumbar spine is: ----- L1-L4(G/cm2): 1.406 T Score Values are as follows: ----- L1: -0.2 ----- L2: 0.1 ----- L3: 4.1 ----- L4: 3.2 ----- L1-L4: 1.9 Z Score Values are as follows: ----- L1: 0.3 ----- L2: 0.6 ----- L3: 4.6 ----- L4: 3.7 ----- L1-L4: 2.4 Bone mineral density has: decreased -4.1 % since study of: 12/16/2021 Bone mineral density about the R hip (g/cm2): 1.004 Bone mineral density about the L hip (g/cm2): 0.993 T Score values are as follows: -----R Neck: -0.6 -----L Neck: -1.0 -----R Total: -0.1 -----L Total: 0.1 Z Score values are as follows: -----R Neck: 0.4 -----L Neck: 0.0 -----R Total: 0.6 -----L Total: 0.8 Bone mineral density has: decreased -5.5 % since study of: 12/16/2021 FRAX%s: The graph provided illustrates a 8.1% chance for a major osteoporotic fx and a 0.9% chance fo r the hips probability for fx in 10 years time. IMPRESSION: Normal (Values between +1 and -1 indicate normal bone mass). Consider repeating this study in 5 year s or sooner if there is some new clinical indication. NOTE: T-SCORE=SD OF THE YOUNG ADULT MEAN.
== END | disposition home or self-care (01) ==
LOC: RADBDWWP 12:25
PROVIDERS: ATTEND Internal Medicine Hematology & Oncology
DX: C50.412 Malignant neoplasm of upper-outer quadrant of left female breast (principal)
CPT/HCPCS: 77080